=== PATIENT | female | born 1970 | race Caucasian/White ===

== ENCOUNTER 2025-02-06 08:11 | Emergency (ER) | payer SELFPAY ==
[2025-02-06 08:25] VITALS: BP 164/98; PULSE 79; RESP 20; TEMP 36.6; O2SAT 99; BMI 21.9
--- NOTE | 2025-02-06 08:29 | XR_ITS ---
FINAL REPORT CLINICAL HISTORY: dry cough 4 years, worse 1w COMPARISON: None FINDINGS: PA and lateral views of the chest are obtained. There is no prior exam for comparison. The cardiac and mediastinal silhouettes are within normal limits. The lungs are clear. There is no pleural effusion, pneumothorax, or acute osseous abnormality. IMPRESSION: No radiographic evidence of acute cardiac or pulmonary disease. Reviewed, Interpreted and Dictated by Jocy Acuna MD Transcribed by Vanessa Arthur Authenticated and [facility]
[2025-02-06 08:30] VITALS: BP 163/129; PULSE 89; O2SAT 98
[2025-02-06 08:32] VITALS: BP 186/114; PULSE 88; O2SAT 98
[2025-02-06] MEDS: predniSONE 20MG TAB 40 MG PO (08:34)
--- NOTE | 2025-02-06 08:44 | ECG_ITS ---
APPROVED REPORT Exam: Resting ECG HR:79 bpm ECG Measurements Heart Rate 79 AXES PA 161 P 59 QRSd 137 QRS 98 QT 393 T 47 QTc 427 Conclusion Sinus rhythm Right axis deviation Conduction delay with widened QRS Electronically signed by : CHUCK SCHAEFER, 02/08/2025 19:38:18
--- NOTE | 2025-02-06 09:01 | HMH.EDGENADL ---
Discharge Plan Disposition Patient Disposition: Home, Self-Care Prescriptions Prescriptions: New prednisone 20 mg tablet 40 mg PO DAILY 5 Days Qty: 10 0RF Referrals Follow up/Referrals: Provider,Referral, MD [Primary Care Provider] - See instructions Activity Restrictions/Add. Instructions Additional Instructions/Restrictions: Call your family doctor to establish care for this visit to the emergency department and schedule follow-up within 48 hours to ensure improvement. Prednisone each morning after waking up for the next 5 days. Clinical Impressions Clinical Impression: Bronchitis Print Language Print Language: Northern Irish Discharge ED Provider: Jose Romero General Adult HPI General Chief complaint: Upper Respiratory Infection Stated complaint: Dry cough, fever, facial edema, SOA Time Seen by Provider: 02/06/25 08:16 Mode of Arrival: Ambulatory Source of Information: Patient and Spouse Description of Symptoms (Recalled from ER Triage Doc. by RN): pt is here for a cough that got worse since sunday but has been going on since 2020 after covid shot, pt desscribes what sounds like asthma but has no pulmonary hx and hasnt seen anyone for it. History of Present Illness HPI narrative: Please note that above description of symptoms, in this electronic medical record under categorization of recalled from ER triage doctor by RN are reflective of an initial nursing assessment, however, is not reflective of my full history and physical exam that was personally taken and clarified. Consequentially, this preceding description of symptoms, which may include the patient's categorized chief complaint in the EMR, do not reflect my personal clinical impression, and the ultimate description of history of present illness and patient stated complaints should be deferred to this section of the note. Unless stated otherwise or congruent with this section of the note, additional signs, symptoms, or incongruence should be interpreted as inaccurate with my clinical impression. Related Data Previous Rx's ?Medication ?Instructions ?Recorded prednisone 20 mg tablet 40 mg (2 x 20 mg) PO DAILY 5 days 02/06/25 #10 tabs Allergies Allergy/AdvReac Type Severity Reaction Status Date / Time sumatriptan (From Imitrex) Allergy Hives Verified 02/06/25 08:31 [facility] Disclaimer: The information contained in this section may have been updated after the patient was seen, as this information can be updated by other users. Social History Smoking Status: Never smoker alcohol intake: never current occupational status: employed Travel in the last 8 weeks?: None ROS Obtained: Yes All systems reviewed & no additional complaints except as documented Physical Exam General General appearance: alert Head Head exam: atraumatic and normocephalic Eye Eye exam: Present normal appearance, PERRL and EOMI Neck Neck exam: Present normal inspection, full ROM and trachea midline Respiratory Respiratory exam: Absent respiratory distress, wheezes, stridor, accessory muscle use or prolonged expiratory phase Cardiovascular Cardiovascular exam: Present other (Pulses equal symmetric in upper and lower extremities) Abdominal Exam Abdominal exam: Present soft; Absent distention, tenderness or pulsatile mass Extremities Exam Extremities exam: Absent edema Neurological Exam Neurological exam: Present alert, oriented X3 and CN II-XII intact; Absent motor sensory deficit Skin Skin exam: Present warm and dry; Absent diaphoresis or erythema Medical Decision Making Medical Records Medical records reviewed: Yes I reviewed the patient's medical records. Screening: Per USPSTF and CDC recommendations, given the prevalence of disease in our region, it is our hospital?s policy to screen for HIV and viral Hepatitis for all patients aged 18 and over and those with ongoing risk factors. Inocencio Inquiry Pt receiving controlled substance: No Inocencio was queried for this patient: No Vital Signs: 02/06/25 08:25 02/06/25 08:30 02/06/25 08:32 Temperature 97.8 F Temperature Source Oral Pulse Rate 89 88 Pulse Rate [Left Radial] 79 Respiratory Rate 20 Blood Pressure 163/129 H 186/114 H Blood Pressure [Right Arm] 164/98 H Blood Pressure Mean [Right Arm] 120 02 Sat by Pulse Oximetry 99 98 98 Oxygen Delivery Method Room Air Room Air Room Air Orders (Tests/Meds): ED MEDICATIONS Discontinued Medications Generic Name Dose Route Start Last Admin Trade Name Freq PRN Reason Stop Dose Admin Prednisone 40 mg 02/06/25 08:29 02/06/25 08:34 Prednisone 20mg Tab PO 02/06/25 08:30 40 mg ONCE ONE Administration ORDERS Category Date Time Status CXR 2 view (NOT portable) [XR chest 2V] Stat Exams 02/06/25 08:29 Taken Medical Decision Narrative: 54-year-old female presenting with dry cough. States that this started in 2020. Not getting any better. States that it may have gotten worse in terms of frequency starting on Sunday 4 days prior to this. Nonproductive. No fevers or chills, chest pain, nausea, vomiting, lower extremity swelling, PND, orthopnea, neurologic deficits, or any other concerns. Came in for further evaluation. States that she was using her inhaler, seem to work a little. History obtained with patient. On arrival, very clinically well. Speaking full senses, no wheezes on lung exam, bilateral clear lungs. Nontachycardic, neurologically intact. Differential includes bronchitis, allergic reactive airway disease, less likely be pneumothorax, PE, ACS, CHF, among others. Patient was given steroid. Chest x-ray was obtained. On independent interpretation, this was negative for any acute intrathoracic pathology. She does have bronchial inflammation consistent with likely viral syndrome, chronic bronchitis, etc. Given patient presentation, workup, history, this most likely represents bronchitis. Because patient at baseline without signs or symptoms of clinical decompensation, deemed appropriate for discharge. Results were relayed to patient who voiced understanding and were agreeable to outpatient management and follow up. I discussed my clinical impression with patient and answered all questions. At this time, the evidence for any other entities in the differential is insufficient to warrant any further testing or ED observation. This was explained as well. Advisory was given that persistent or worsening symptoms require further evaluation. I confirmed the understanding of this discussion. [employer] disclaimer Much of this encounter note is an electronic supervisor porcelain department spoken language to printed text. Electronic supervisor porcelain department of the spoken language may permit errors. Although I have reviewed the note, some errors may still exist. Critical Care Critical Care Time Critical Care Time: No
--- NOTE | 2025-02-06 09:52 | PC.NURSE ---
upon discharge patient was very rude with ER MD, pt kept trying to come up with issues and problems as if she didnt want to leave and when ER MD stated there is nothing to keep you here for pt got mad and said she had been told wrong information that this was a great ER, pt signed the dc form and stormed out of ER.
[2025-02-06 09:56] VITALS: BP 151/100; PULSE 84; RESP 20; TEMP 36.8; O2SAT 97
== END 2025-02-06 09:58 | disposition home or self-care (01) ==
LOC: ER 09:24
PROVIDERS: Emergency Provider Emergency Medicine
DX: J20.9 Acute bronchitis, unspecified (principal); R06.02 Shortness of breath
CPT/HCPCS: 71046; 93005; 99284

== ENCOUNTER 2025-02-06 10:07 | Emergency (ER) | payer SELFPAY ==
--- NOTE | 2025-02-06 10:05 | ECG_ITS ---
APPROVED REPORT Exam: Resting ECG HR:76 bpm ECG Measurements Heart Rate 76 AXES MD 157 P 64 QRSd 133 QRS 102 QT 385 T 53 QTc 416 Conclusion Sinus rhythm Right axis deviation Electronically signed by : CHUCK SCHAEFER, 02/08/2025 19:38:01
[2025-02-06 10:26] VITALS: BP 176/115; PULSE 87; RESP 20; TEMP 37; O2SAT 100; BMI 22.8
--- NOTE | 2025-02-06 10:59 | ED_ITS ---
Discharge Plan Disposition Patient Disposition: Home, Self-Care Prescriptions Prescriptions: No Action prednisone 20 mg tablet 40 mg PO DAILY 5 Days Qty: 10 0RF Referrals Follow up/Referrals: August Briceno MD [Staff Physician] - See instructions Provider,MD Missael [Primary Care Provider] - See instructions Charissa Gordon MD [Physician] - See instructions Activity Restrictions/Add. Instructions Additional Instructions/Restrictions: Follow-up with your family doctor for this visit to the emergency department. You can also call cardiology and pulmonology to set up appointments for your heart and lungs. Take your blood pressure 2-3 times daily. Follow-up with your family doctor regarding this visit to the emergency department if your blood pressure continues to be elevated in order to further address need for blood pressure medications, if needed. Clinical Impressions Clinical Impression: Cough Print Language Print Language: Upper Sorbian Discharge ED Provider: Jose Romero General Adult HPI General Chief complaint: Recheck/Abnormal Lab/Rx Stated complaint: SOA Time Seen by Provider: 02/06/25 10:11 Mode of Arrival: Ambulatory Source of Information: Patient Description of Symptoms (Recalled from ER Triage Doc. by RN): Patient presents back to ED to be seen with her dry cough, and her chest feels tight. Patient states she does not feel good enough to be d/c. History of Present Illness HPI narrative: Please note that above description of symptoms, in this electronic medical record under categorization of recalled from ER triage doctor by RN are reflective of an initial nursing assessment, however, is not reflective of my full history and physical exam that was personally taken and clarified. Consequentially, this preceding description of symptoms, which may include the patient's categorized chief complaint in the EMR, do not reflect my personal clinical impression, and the ultimate description of history of present illness and patient stated complaints should be deferred to this section of the note. Unless stated otherwise or congruent with this section of the note, additional signs, symptoms, or incongruence should be interpreted as inaccurate with my clinical impression. Related Data Previous Rx's ?Medication ?Instructions ?Recorded prednisone 20 mg tablet 40 mg (2 x 20 mg) PO DAILY 5 days 02/06/25 #10 tabs Allergies Allergy/AdvReac Type Severity Reaction Status Date / Time sumatriptan (From Imitrex) Allergy Hives Verified 02/06/25 08:31 [facility] Disclaimer: The information contained in this section may have been updated after the patient was seen, as this information can be updated by other users. Social History (Updated 02/06/25 @ 09:07 by Jose Romero MD) Smoking Status: Never smoker alcohol intake: never current occupational status: employed Travel in the last 8 weeks?: None Have you lived/traveled outside [place] in past 30 days?: No Contact w/someone who lives/traveled outside US past 30 days?: No Exposure to someone with infectious disease in past 14 days?: No Do you have a fever (greater than 100.4 F or 38 C)?: No Have you tested positive for COVID-19?: No Exposed to someone with COVID-19 in past 14 days?: No Do you have a sore throat?: No Do you have a cough?: No Do you have any weakness?: No Do you have any diarrhea?: No Are you experiencing any unusual bleeding?: No Do you have any muscle aches/pain?: No Do you have any abdominal pain?: No Are you experiencing loss of taste or smell?: No ROS Obtained: Yes All systems reviewed & no additional complaints except as documented Physical Exam General General appearance: alert and anxious Comment: Agitated Head Head exam: atraumatic and normocephalic Eye Eye exam: Present normal appearance, PERRL and EOMI Neck Neck exam: Present normal inspection, full ROM and trachea midline Respiratory Respiratory exam: Present normal lung sounds bilaterally; Absent respiratory distress, wheezes, stridor, accessory muscle use or prolonged expiratory phase Cardiovascular Cardiovascular exam: Present regular rate, normal rhythm and other (Pulses equal symmetric in upper and lower extremities) Abdominal Exam Abdominal exam: Absent distention Extremities Exam Extremities exam: Absent edema Neurological Exam Neurological exam: Present alert, oriented X3 and CN II-XII intact; Absent motor sensory deficit Skin Skin exam: Present warm and dry; Absent diaphoresis or erythema Medical Decision Making Medical Records Medical records reviewed: Yes I reviewed the patient's medical records. Screening: Per USPSTF and CDC recommendations, given the prevalence of disease in our region, it is our hospital?s policy to screen for HIV and viral Hepatitis for all patients aged 18 and over and those with ongoing risk factors. Inocenico Inquiry Pt receiving controlled substance: No Niocencio was queried for this patient: No Vital Signs: 02/06/25 10:26 02/06/25 12:04 02/06/25 12:07 Temperature 98.6 F 98.7 F Temperature Source Oral Oral Pulse Rate 82 Pulse Rate [Right Brachial] 87 82 Respiratory Rate 20 20 20 Blood Pressure 159/98 H Blood Pressure [Right Arm] 176/115 H 159/98 H Blood Pressure Mean [Right Arm] 135 118 Blood Pressure Source Automatic Cuff Blood Pressure Source [Right Arm] Automatic Cuff Automatic Cuff Blood Pressure Position Sitting Blood Pressure Position [Right Arm] Supine Sitting 02 Sat by Pulse Oximetry 100 100 Oxygen Delivery Method Room Air Room Air Room Air Lab Data Lab Results 02/06/25 11:17: WBC 6.2, RBC 4.68, Hgb 13.8, Hct 41.1, MCV 87.8, MCH 29.5, MCHC 33.6, RDW 12.7, Plt Count 264, MPV 10.9 H, Neut % (Auto) 74.2, Lymph % (Auto) 19.8, Bennett % (Auto) 3.9, Eos % (Auto) 0.8, Baso % (Auto) 1.0, Neut # (Auto) 4.6, Lymph # (Auto) 1.2, Bennett # (Auto) 0.2, Eos # (Auto) 0.1, Baso # (Auto) 0.1, Sodium 139, Potassium 4.5, Chloride 110 H, Carbon Dioxide 25, Anion Gap 8.5, BUN 11, Creatinine 0.60, Estimated Creat Clear 97, Estimated GFR 105, Est GFR ( Amer) 127, Glucose 142 H, Calcium 9.5, Magnesium 2.0, Total Bilirubin 0.6, AST 36, ALT 35, Alkaline Phosphatase 97, Troponin I 0.02, NT-Pro-B Natriuret Pep 26.7, Total Protein 7.5, Albumin 4.7, Globulin 2.8, Albumin/Globulin Ratio 1.7 02/06/25 11:17 02/06/25 11:17 Orders (Tests/Meds): ORDERS Category Date Time Status CBC w/Auto Diff [Complete Blood Count Auto Diff] Stat Lab 02/06/25 11:17 Completed CMP [Comprehensive Metabolic Panel] Stat Lab 02/06/25 11:17 Completed Magnesium Stat Lab 02/06/25 11:17 Completed NT Pro Brain Natriuretic Pep. Stat Lab 02/06/25 11:17 Completed Trop I [Troponin I] Stat Lab 02/06/25 11:17 Completed Troponin I Q3H Lab 02/06/25 14:30 Ordered Troponin I Q3H Lab 02/06/25 17:30 Ordered Medical Decision Narrative: This is a 54-year-old female presenting with multiple complaints. Patient initially being agitated, but pleasant. She was discharged just a few minutes prior to this visit to the emergency department because she came in for cough this been going on for 4 years that got worse just a couple days prior to this. Chest x-ray without fluid, demonstrated bronchial inflammation. Patient was given steroids. Prior to discharge, patient states that she was worried about her blood pressure running higher than it usually did, but was not currently having symptoms. It was explained that when patients come into the emergency department, they are worried about something, and pain, anxious, etc., blood pressure is generally universally run higher. 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 Patient was discharged appropriately and in hemodynamically stable condition. Patient returned immediately to the emergency department stating that she had facial swelling, bilateral hand and feet swelling, chest pains, amongst a host of other complaints. EKG was obtained. On independent interpretation, still sinus rhythm with right axis deviation similar to her previous. Ventricular rate 76, TX 157, QRS 133, QTc 416. No acute ischemic changes on serial exam from the previous one that happened a little less than 2 hours prior. Patient states that she was unsafely discharged, and is agitated, irritated. I tried to talk to patient reasonably, have conversation, but she continually became more agitated. I asked her what she needed for me, she stated that she would like to know why her hands or feet are swelling. On physical exam, they are grossly not swollen and not edematous. She has no evidence of angioedema, speaking full sentences, and neither her hands, feet, upper or lower extremities in general have any signs of edema. Her pulses are equal and symmetric in upper and lower extremities. 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 Because of this, I tried to level with her and state that we can certainly get labs to rule out any kind of metabolic, cardiac or other abnormality that may potentially be contributing. Patient begins fighting this stating you are just painting me like someone who is coming in here making demands. It was explained that I was not paining her as anything in particular, she, herself, was the one making demands and I was asking her what she needed from me. This made patient incredibly angry and she started raising her voice. I raised my voice as well and told patient that she would not talk to me this way and we were going to have a civil interaction. I asked her once again, what she wanted for me and what she needed from this visit. She yelled I need my to be here with me! I asked patient why she needs her to be with her to explain what symptoms she, herself, is having and she refused to ask any other questions or answer any questions. She stormed out of the room, went to the charge desk and requested her to be brought into the emergency department. unable to be found, so he was contacted. Patient's brought back. Patient experience was contacted as well as house and security given the level of agitation and patient. We do not accept any form of aggression in the emergency department including verbal. Patient able to be calmed down, but states that she needs to be seen in a different emergency department, does not trust us, etc. I was explained that we are not asking her to trust us, she came here in order to have a workup done and the previous medical screening exam was adequate for that visit. Dissatisfied, so labs were drawn. On independent interpretation, nonactionable CBC with hemoglobin 13.8. Patient's chemistry nonactionable with normal kidney function, normal electrolytes other than mildly elevated chloride, not clinically relevant. Patient's troponin negative, BNP negative. On reevaluation, patient and in room. Results were relayed with her. We also had conversation regarding interaction as discussed above and the conversation ended on relatively good terms. Given patient presentation, workup, history, this most likely represents acute on chronic bronchitis versus reactive airway disease. Because patient at baseline without signs or symptoms of clinical decompensation, deemed appropriate for discharge. Results were relayed to patient who voiced understanding and were agreeable to outpatient management and follow up. I discussed my clinical impression with patient and answered all questions. At this time, the evidence for any other entities in the differential is insufficient to warrant any further testing or ED observation. This was explained as well. Advisory was given that persistent or worsening symptoms require further evaluation. I confirmed the understanding of this discussion. Bike Technician disclaimer Much of this encounter note is an electronic parachute repairer spoken language to printed text. Electronic parachute repairer of the spoken language may permit errors. Although I have reviewed the note, some errors may still exist. Critical Care Critical Care Time Critical Care Time: No
--- NOTE | 2025-02-06 11:02 | PC.NURSE ---
Patient came to the nurses station screaming at staff to get her . Attempted to get her but could not find him. Patient began yelling asking for her records and that she was going to go to another hospital. Refused to leave nurses station. supervisor assembling, Zahra Aguayo and security notified.
[2025-02-06 11:30] LABS: Basophils # 0.1 K/mm3 (0-0.2); Eosinophils # 0.1 Kmm3 (0.0-0.4); Eosinophils % 0.8 % (0.1-12.0); Hematocrit 41.1 % (37.0-47.0); Hemoglobin 13.8 g/dL (12.2-16.2); Immature Granulocytes # 0.02 10^3uL; Immature Granulocytes % 0.3 %; Lymphocytes # 1.2 K/mm3 (0.7-4.5); Lymphocytes % 19.8 % (10-50); Mean Corpuscular HGB Conc 33.6 g/dL (31.8-35.4); Mean Corpuscular Hemoglobin 29.5 pg (27.0-31.2); Mean Corpuscular Volume 87.8 fl (81-99); Mean Platelet Volume 10.9 fl (7.4-10.4); Monocytes # 0.2 K/mm3 (0.1-1.0); Monocytes % 3.9 % (1.7-9.3); Neutrophils # 4.6 K/mm3 (1.8-7.8); Neutrophils % 74.2 % (37.0-80.0); Nucleated Red Blood Cells # 0 10^3/uL; Nucleated Red Blood Cells % 0 %; Platelet Count 264 K/mm3 (142-424); Red Blood Count 4.68 M/mm3 (4.20-5.40); Red Cell Distribution Width 12.7 % (11.5-17.5); Red Cell Distribution Width-SD 41.1 fL; White Blood Count 6.2 K/mm3 (4.8-10.8)
[2025-02-06 11:34] LABS: Albumin Level 4.7 g/dl (3.5-5.0); Chloride 110 mmol/L (98-107)
[2025-02-06 11:35] LABS: Potassium 4.5 mmoL/L (3.5-5.1); Sodium 139 mmol/L (136-145)
[2025-02-06 11:37] LABS: Alanine Aminotransferase 35 U/L (12-78); Alkaline Phosphatase 97 U/L (38-126); Anion Gap 8.5 mEq/L (5-15); Aspartate Amino Transferase 36 U/L (14-36); Bilirubin,Total 0.6 mg/dl (0.2-1.3); Blood Urea Nitrogen 11 mg/dl (7-17); Carbon Dioxide 25 mmol/L (22.0-30.0); Creatinine Clearance Estimated 97 mL/min (50-200); Estimated Glomerular Filt Rate 105 ml/min (>60); GFR (African American) 127 ML/MIN (>60)
[2025-02-06 11:38] LABS: Albumin/Globulin Ratio 1.7 (1.1-1.8); Calcium 9.5 mg/dl (8.4-10.2); Globulin 2.8 g/dL (1.3-3.2); Glucose 142 mg/dl (74-100); Total Protein,Serum 7.5 g/dl (6.3-8.2)
--- NOTE | 2025-02-06 11:40 | PC.NURSE ---
Patient came to the nurses station yelling I want my EKG now and I am leaving to go to a different ER. Patient was raising her voice and demanding her be able to come back to see her. Zahra Aguayo and RADHA Willams, RN called at that time. Patient was escorted back to her chair in room 12. This RN called her to let him know the patient wanted him to come inside to see her. Zahra aguayo and RADHA came to bedside at this time. Patient states she does not feel like she is safe to d/c. had offered to do labs and patient declined originally. Now patient is agreeing to have labs drawn. RADHA draws the labs. updated on POC. Patient is resting in chair, at side. updated on POC. patient voices no needs at this time.
[2025-02-06 11:47] LABS: NT Pro Brain Natriuretic Pep. 26.7 pg/mL (0-125)
[2025-02-06 11:49] LABS: Troponin I 0.02 ng/ml (0.00-0.034)
[2025-02-06 12:04] VITALS: BP 159/98; PULSE 82; RESP 20; TEMP 37.1; O2SAT 100
[2025-02-06 12:07] VITALS: BP 159/98; PULSE 82; RESP 20; O2SAT 100
== END 2025-02-06 12:25 | disposition home or self-care (01) ==
PROVIDERS: Emergency Provider Emergency Medicine
DX: R07.89 Other chest pain (principal); R05.1 Acute cough; R45.1 Restlessness and agitation; R45.5 Hostility
CPT/HCPCS: 80053; 83735; 83880; 84484; 85025; 93005; 99283

== ENCOUNTER 2025-09-09 16:00 | Outpatient (CLI) | payer SELFPAY ==
--- OUTSIDE RECORDS SUMMARY | 2025-09-08 14:30 | XMS_ITS | Encounter Summary ---
Author Organization [facility] Address [address] [place] [address] Care Team Providers Care Home Care Manager Name Role Phone Freddy CLARK MD, Malvin Washburn Unavailable Keira vailable Tono Astudillo MD Unavailable Encounter Details Date Type Department Care Team (Latest Contact Info) Description 09/08/2025 2:30 PM EST Telemedicine [facility] [place] [address] Francine Hawk PA-C [address] [place] [address] Primary hypertension (Primary Dx); Hyperlipidemia, unspecified hyperlipidemia type; Type 2 diabetes mellitus without complication, without long-term current use of insulin (HCC); Left bundle branch block; 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 No answer. Recommend calling to reschedule. 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
[2025-09-09 19:45] LABS: Alanine Aminotransferase 32 U/L (12-78); Albumin Level 4.3 g/dl (3.5-5.0); Albumin/Globulin Ratio 1.5 (1.1-1.8); Alkaline Phosphatase 85 U/L (38-126); Anion Gap 8.9 mEq/L (5-15); Aspartate Amino Transferase 33 U/L (14-36); Bilirubin,Total 0.9 mg/dl (0.2-1.3); Blood Urea Nitrogen 12 mg/dl (7-17); Calcium 9.6 mg/dl (8.4-10.2); Carbon Dioxide 30 mmol/L (22.0-30.0); Chloride 104 mmol/L (98-107); Creatinine,Serum 0.80 mg/dl (0.52-1.04); Estimated Glomerular Filt Rate 75 ml/min (>60); GFR (African American) 90 ML/MIN (>60); Globulin 2.8 g/dL (1.3-3.2); Glucose 158 mg/dl (74-100); Lipase 180 U/L (23-300); Potassium 3.9 mmoL/L (3.5-5.1); Sodium 139 mmol/L (136-145); Total Protein,Serum 7.1 g/dl (6.3-8.2)
--- OUTSIDE RECORDS SUMMARY | 2025-09-10 11:55 | XMS_ITS | Encounter Summary ---
Author Organization [facility] [address] Care Team Providers Care Grader Meat Name Role Phone Elsa Cronin MD Primary Care Provider + [phone] Reason for Visit * Auth/Cert/Inpt (Routine) Specialty Diagnoses / Procedures Referred By Contac t Referred To Contact Diagnoses Chest Pain Referral ID Status Reason Start Date Expiration Date Visits Re quested Visits Authorized [id number] 1 1 Encounter Details Date Type Department Care Team (Late st Contact Info) Description 12/03/2024 Hospital Encounter EDG 2A OBSERVATION UNIT [facility] [address] [place] [id number] August Ochoa MD [address] [place] [address] Social History Tobacco Use Types Packs/Day Years Used Date Smoking Tobacco: Never Smokeless Tobacco: Never Alcohol Use Standard Drinks/Week Comments Never 0 (1 standard drink = 0.6 oz pur e alcohol) AUDIT-C Answer Date Recorded Q1: How often do you have a drink containing alc ohol? Never 05/11/2021 Average Number of Drinks Not on file 021 Frequency of Binge Drinking Not on file 04/24 Sexually Active Control Partners Comments Yes Surgical Male Comments No Sex and Gender Information Value Date Recorded Sex Assigned at Not on file Legal Sex Female 5:14 AM EDT Gender Identity Not on file Sexual Orientation Not on file documented as of this encounter Plan of Treatment Not on file documented as of this encounter Visit Diagnoses Not on filedocumented in this encounter Care Teams Grader Meat Relationship Specialty Start Date End Date Elsa Cronin MD [address] [place] [phone] PCP - General Family Medicine 09/09/21 documented as of this encounter
--- OUTSIDE RECORDS SUMMARY | 2025-09-10 11:55 | XMS_ITS | Clinical Summary ---
Author Organization [facility] Address [address] [place] [address] Care Team Providers Care [employer] Advisor Name Role Phone Freddy CLARK MD, Malvin Washburn Unavailable Keira vailable Tono Astudillo MD Unavailable Allergies Active Allergy Reactions Criticality Noted Date Comments Moxifloxacin Other (See Comments) 09/18/2010 Hallucinations Sumatriptan Succinate Anaphylaxis High 09/18/2010 Medications Lisdexamfetami ne (VYVANSE) 40 mg Cap Take 40 mg by mouth Once Daily. Active diphenhydrAMIN E (BENADRYL) 50 mg/mL injection Administer 50 mg intramuscularly As needed. Active ketorolac (TORADOL) 60 mg/2 mL injection Administer 30 mg intramuscularly Every 6 hours. Active ondansetron HCL (ZOFRAN) 4 mg tablet Take 8 mg by mouth Twice a day. Active diltiazem (CARDIZEM) 30 mg tablet Take 1 Tablet by mouth Three times a day. 90 Tablet 06/09/20 25 Active metoprolol (LOPRESSOR) 25 mg tablet Take 1 Tablet by mouth Once Daily. 30 Tablet 3 06/09/20 25 Active ergocalciferol (VITAMIN D2) 50,000 unit CAPSULE Take 1 Capsule by mouth Every week. 12 Capsule 1 06/11/20 25 Active Active Problems Problem Noted Date Diagnosed Date NIDDM (non-insulin dependent diabetes mellitus) 09/19/2010 Migraines 09/19/2010 Chest pain 09/19/2010 Tachycardia 09/19/2010 HTN (hypertension) 09/19/2010 Hyperlipidemia 09/19/2010 Elevated LFT's 09/19/2010 Encounters Date Type Department Care Team Description 09/08/2025 2:30 PM EST Telemedicine [facility] [address] [place] [address] Francine Hawk PA-C Primary hypertension (Primary Dx); Hyperlipidemia, unspecified hyperlipidemia type; Type 2 diabetes mellitus without complication, without long-term current use of insulin (HCC); Left bundle branch block; 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); Other fatigue 06/11/2025 Orders Only [facility] [address] [facility] [address] [place] [phone] Francine Hawk PA-C Low vitamin D level (Primary Dx) from Last 3 Months Social History Tobacco Use Types Packs/Day Years Used Date Smoking Tobacco: Never Smokeless Tobacco: Never Alcohol Use Standard Drinks/Week Comments No 0 (1 standard drink = 0.6 oz pur e alcohol) Comments No Sex and Gender Information Value Date Recorded Sex Assigned at Not on file Legal Sex Female 8:19 PM EST Gender Identity Not on file Sexual Orientation Not on file Last Filed Vital Signs Vital Sign Reading Time Taken Comments Blood Pressure 138/90 06/09/2025 9:28 AM EDT Pulse 87 06/09/2025 9:28 AM EDT Temperature 36.8 C (98.2 F) 02/27/2014 2:15 PM EDT Respiratory Rate 16 06/09/2025 9:28 AM EDT Oxygen Saturation 99% 06/09/2025 9:28 AM EDT Inhaled Oxygen Concentration - - Weight 61.1 kg (134 lb 12.8 oz) 06/09/2025 9:28 AM EDT Height 157.5 cm (5' 2 ) 06/09/2025 9:28 AM EDT Body Mass Index 24.66 06/09/2025 9:28 AM EDT Plan of Treatment Health Maintenance Due Date Last Done Comments ANNUAL DIABETIC URINE MICROALBUMIN 1971 COLOGUARD 1971 COLONOSCOPY 1971 Colorectal Screening Combination 1971 FIT 1971 PAP SMEAR EVERY 3 YR (Cervic al Cancer Screen) 1971 SIGMOIDOSCOPY 1971 ANNUAL DIABETIC EYE EXAM 1981 ANNUAL MAMMOGRAM 2011 Shingles Vaccine (Shingrix) (1 of 2) 2021 ANNUAL WELLNESS EXAM 11/01/2023 10/31/2022 INFLUENZA VACCINE (#1) 2025 2, 07/30/2018, 09/26/2017 DTAP/TDAP/TD VACCINE (2 - Td or Tdap) 06/21/2027 06/21/2017 HEP C SCREENING Completed 10/11/2010 CT Colonography Completed HEP A VACCINE Aged Out No longer elig ible based on patient's age to complete this topic HIB VACCINE Aged Out No longer eligi ble based on patient's age to complete this topic ROTOVIRUS VACCINE Aged Out No longer eligible based on patient's age to complete this topic Procedures Procedure Name Priority Date/Time Associated Diagnosis Comments ACUTE HEPATITIS PANEL Routine 10/11/2010 10:55 AM EST RUQ pain Elevated liver enzymes GERD (gastroesophageal reflux disease) from Last 3 Months or Most Recently Relevant to Health Maintenance Results * Acute Hepatitis Panel (10/11/2010 10:55 AM EST) HBSAG NEGATIVE Negative [facility] HEPATITIS BC AB, IGM NEGATIVE Negative [facility] HEPATITIS C AB NEGATIVE Negative [facility] HEPATITIS A IGM NEGATIVE Negative [facility] 10/11/2010 10:5 5 AM EST 10/11/2010 11:00 AM EST Malvin Hayes III, MD CHEMISTRY ORDERABLES Final Result [facility] [address] [facility] [place] [address] from Last 3 Months or Most Recently Relevant to Health Maintenance Insurance WORKERS COMP - GENERIC Care Teams [employer] Advisor Relationship Specialty Start Date End Date Tono Astudillo MD [address] [place] [address] PCP - Family Medicine Family Medicine 03/10/25 Malvin Hayes III, MD Gastroenterology 10/10/10
--- OUTSIDE RECORDS SUMMARY | 2025-09-10 11:55 | XMS_ITS | Clinical Summary ---
Author Organization [facility] [place] [facility] Address [address] [place] [address] Phone Care Team Providers Care Paper Cone Maker Name Role Phone Elsa Cronin MD Primary Care Provider + [phone] Allergies Active Allergy Reactions Criticality Noted Date Comments Sumatriptan Succinate Anaphylaxis High 10/27/2015 Tongue and throat swell Moxifloxacin Other (See Comments) 09/18/2010 Hallucinations Medications fluticasone (FLONASE) 50 mcg/actuation Nasl Rand[place], SuspensionIndic ations:Acute frontal sinusitis, recurrence not specified 1 [place] by Nasal route daily. 1 Bottle 0 6 Active Additional Information Patient not taking.Reported on 10/31/2022 buPROPion (WELLBUTRIN XL) 300 mg Oral Tablet Sustained Release 24 hr Take by mouth daily. Active PROAIR HFA 90 mcg/actuation Inhl HFA Aerosol Inhaler 1 Active azithromycin (ZITHROMAX) 250 mg Oral Tablet 1 Active benzonatate (TESSALON) 200 mg Oral Capsule 1 Active ketorolac (TORADOL) 60 mg/2 mL IM Solution 1 Active methylPREDNISol one (MEDROL DOSPACK) 4 mg Oral Tablets, Dose Pack 1 Active promethazine-co deine (PHENERGAN WITH CODEINE) 6.25-10 mg/5 mL Oral Syrup 1 Active methylPREDNISol one (MEDROL DOSPACK) 4 mg Oral Tablets, Dose Pack follow package directions 21 Tablet 1 Active Additional Information Patient not taking.Reported on 10/31/2022 Multivitamins-M inerals-Lutein Oral Tablet Take 1 Tablet by mouth daily. Active metoprolol succinate (TOPROL-XL) 25 mg Oral Tablet Sustained Release 24 hr 3 Active busPIRone (BUSPAR) 5 mg Oral Tablet Take 5 mg by mouth. Active ibuprofen (ADVIL;MOTRIN) 600 mg Oral TabletIndicatio ns:Dyspareunia in female Take 1 Tablet by mouth every 6 hours as needed for Pain. 60 Tablet 1 3 Active Active Problems Problem Noted Date Diagnosed Date Numbness in both hands 09/09/2021 Abnormal liver function tests 09/19/2010 Chest pain 09/19/2010 Diabetes mellitus 09/19/2010 HTN (hypertension) 09/19/2010 Hyperlipidemia 09/19/2010 Migraines 09/19/2010 Tachycardia 09/19/2010 Encounters Date Type Department Care Team Description 07/06/2025 Telephone [facility] Arrhythmia [facility]tr Edg [address] [facility] [address] [place] [phone] Mary Troy, Clerical Staff Other from Last 3 Months Immunizations Immunization Administration Dates Next Due Tdap 06/21/2017 Surgical History Surgery Date Site/Laterality Comments HYSTERECTOMY CHOLECYSTECTOMY Medical History Medical History Date Comments Left bundle branch block Attention-deficit hyperactivity disorder Family History Medical History Relation Name Comments Diabetes Brother Diabetes Father Heart Disease Father Heart Attack Mother Other Paternal Aunt Relation Name Status Comments Brother Father Mother Paternal Aunt Social History Tobacco Use Types Packs/Day Years Used Date Smoking Tobacco: Never Smokeless Tobacco: Never Tobacco Cessation:Counseling Given: Not Answered Alcohol Use Standard Drinks/Week Comments Never 0 [...] on file Sexual Orientation Not on file Obstetrics History Para Term AB IAB SAB Ectopic Multiple Livin g Live Births 2 2 2 Date Outcome GA Total Labor Labor/2nd/3rd Weight Sex Type Anes PTL Lizy A1 A5 Name Clin Para Vag-Spo nt Para Vag-Spo nt Last Filed Vital Signs Vital Sign Reading Time Taken Comments Blood Pressure 133/87 05/26/2025 12:34 AM EDT Pulse 76 05/26/2025 12:34 AM EDT Temperature 36.6 C (97.9 F) 05/25/2025 10:46 PM EDT Respiratory Rate 18 05/26/2025 12:34 AM EDT Oxygen Saturation 99% 05/26/2025 12:34 AM EDT Inhaled Oxygen Concentration - - Weight 59 kg (130 lb) 05/25/2025 10:45 PM EDT Height 154.9 cm (5' 1 ) 05/25/2025 10:45 PM EDT Body Mass Index 24.56 05/25/2025 10:45 PM EDT Plan of Treatment Health Maintenance Due Date Last Done Comments Annual Wellness Exam 1974 Lipids 1981 Diabetic Eye Exam 1989 Hemoglobin A1c 1989 Kidney Health: uACR 1989 Hepatitis B Vaccine (1 of 3 - 19+ 3-dose series) 1990 Pneumococcal Vaccine 50+ (1 of 2 - PCV) 1990 HPV/Pap Cotest 2001 Breast Cancer Screening 2011 Cologuard 2016 Colon Cancer Screening 2016 Colonoscopy 2016 FIT 2016 Sigmoidoscopy 2016 Virtual Colonography 2016 Zoster (1 of 2) 2021 COVID-19 Vaccine (1 - season) 2025 Influenza Vaccine (#1) 2025 2, 07/30/2018, 09/26/2017, Additional history exists Cervical Cancer Screening 10/31/2025 Pap Smear 10/31/2025 10/31/2022 Kidney Health: eGFR 02/17/2026 02/17/2025 DTaP/TDaP/Td (2 - Td or Tdap) 06/21/2027 06/21/2017 Meningococcal B Vaccine Aged Out No l onger eligible based on patient's age to complete this topic Procedures Procedure Name Priority Date/Time Associated Diagnosis Comments BASIC METABOLIC PANEL STAT 02/17/2025 9:34 PM EDT NURSERY MANAGER CYTOLOGY REQUEST (PAP ONLY) Routine 10/31/2022 10:13 AM EST Well female exam with routine gynecological exam from Last 3 Months or Most Recently Relevant to Health Maintenance Results * (ABNORMAL) BASIC METABOLIC PANEL (02/17/2025 9:34 PM EDT) Sodium 142 136 - 145 mmol/L 02/17/2025 9:58 PM EDT [facility] Potassium 3.8 3.5 - 5.0 mmol/L 02/17/2025 9:58 PM EDT [facility] Chloride 107 98 - 107 mmol/L 02/17/2025 9:58 PM EDT [facility] Total CO2 24 22 - 29 mmol/L 02/17/2025 9:58 PM EDT [facility] Anion Gap 11 7 - 16 mmol/L 02/17/2025 9:58 PM EDT [facility] Calcium 8.9 8.6 - 10.4 mg/dL 02/17/2025 9:58 PM EDT [facility] Glucose Lvl 149(H) 70 - 99 mg/dL 02/17/2025 9:58 PM EDT [facility] BUN 9 6 - 20 mg/dL 02/17/2025 9:58 PM EDT [facility] Creatinine 0.61 0.51 - 1.30 mg/dL 02/17/2025 9:58 PM EDT [facility] eGFR (CKD-EPIcr 2020) 106 >=60 mL/min/1.7 3 m2 02/17/2025 9:58 PM EDT [facility] Comment:Estimated GFR was ca lculated using the CKD-EPIcr (2020) equation refit without race. The equation is recommended by the National Kidney Foundation - [place] [employer] of Nephrology Task Force. Blood VENOUS BLOOD / Unknown Venipuncture / Unknown 02/17/2025 9:34 PM EDT 02/17/2025 9:39 PM EDT us Edvin Hughes MD CHEMISTRY ORDERABLES Final Res ult [facility] [address] [facility] [place] [address] * NURSERY MANAGER CYTOLOGY REQUEST (PAP ONLY) (10/31/2022 10:13 AM EST) CASE REPORT Gynecologic Cytology Report Case: [id number] Authorizing Provider: Tono Bishop MD Collected: 10/31/2022 1013 Ordering Location: [facility] NPTT Received: 10/31/2022 1013 First Screen: Quentin Arboleda CT Specimen: LIQUID-BASED PAP - VAGINAL CUFF, Vaginal Cuff 11/02/2022 8:43 AM EST [facility] PAP FINAL DIAGNOSIS Negative for intraepithelial lesion or malignancy 11/02/2022 8:[address] [facility] at 0843 EST MICROSCOPIC DESCRIPTION Microscopic examination is performed and the findings corroborate the diagnosis. 11/02/2022 8:43 AM EST [facility] PAP SMEAR ADEQUACY Satisfactory for evaluation 11/02/2022 8:43 AM EST [facility] ENDOCERVICAL T-ZONE Transformation Zone Absent. This is not unusual for a post-hysterectomy woman. 11/02/2022 8:43 AM EST [facility] EMBEDDED IMAGES 8:[address] [facility] PAP DISCLAIMER The Pap Smear is a screening test that aids in the detection of cervical cancer and cancer precursors. Both false positive and false negative results can occur. The test should be used at regular intervals, and positive results should be confirmed before definitive therapy. Processed using the ThinPrep Wet Pan Operator Automated cytology screening device (ECO). 11/02/2022 8:43 AM EST [facility] PAP OTHER FINDINGS Many acute inflammatory cells noted. 11/02/2022 8:43 AM EST [facility] Thin Prep VAGINAL CUFF / Unknown 10/31/2022 10:13 AM EST 10/31/2022 10:13 AM EST us Tono Bishop MD CYTOLOGY ORDERABLES Final Re sult [facility] [address] [place] [id number] from Last 3 Months or Most Recently Relevant to Health Maintenance Insurance [employer] WORK[employer] COMP on file [employer] Care Teams Paper Cone Maker Relationship Specialty Start Date End Date Elsa Cronin MD [address] [place] [phone] PCP - General Family Medicine 09/09/21
--- OUTSIDE RECORDS SUMMARY | 2025-09-10 11:56 | XMS_ITS | Encounter Summary ---
Author Organization [facility] Address [address] [facility] [place] [address] Care Team Providers Care Assignment Clerk Name Role Phone Santy Sanchez MD Primary Care Provider Unava ilable Freddy CLARK MD, Malvin Washburn Unavailable Keira vailable Doctor, Lien Primary Care Provider Unavailabl e Tono Astudillo MD Unavailable Encounter Details Date Type Department Care Team (Late st Contact Info) Description 12/18/2006 Historical Encounter [facility] Maria Del Carmen Holguin, SHOT BAGGER [address] [place] [address] Social History Tobacco Use Types Packs/Day Years Used Date Smoking Tobacco: Never Assessed Comments Unknown Sex and Gender Information Value Date Recorded Sex Assigned at Not on file Legal Sex Female 8:19 PM EST Gender Identity Not on file Sexual Orientation Not on file documented as of this encounter Plan of Treatment Not on file documented as of this encounter Visit Diagnoses Not on filedocumented in this encounter Care Teams Assignment Clerk Relationship Specialty Start Date End Date Santy Sanchez MD PCP - General Internal Medicine 09/18/10 02/26/14 Doctor, Lien selkirk [place] PCP - General Family Medicine 02/27/14 10/26/17 Tono Astudillo MD [address] [place] [address] PCP - Family Medicine Family Medicine 03/10/25 Malvin Hayes III, MD Gastroenterology 10/10/10 documented as of this encounter
--- OUTSIDE RECORDS SUMMARY | 2025-09-10 11:56 | XMS_ITS | Encounter Summary ---
Author Organization [facility] Address [address] [place] [address] Care Team Providers Care American Studies Professor Name Role Phone Santy Sanchez MD Primary Care Provider Unava ilable Freddy CLARK MD, Malvin Washburn Unavailable Keira vailable Doctor, Lien Primary Care Provider Unavailabl e Tono Astudillo MD Unavailable Encounter Details Date Type Department Care Team (Late st Contact Info) Description 11/02/2007 Historical Encounter Global Inés Melendez, ALENA [address] [facility] [place] [address] Social History Tobacco Use Types Packs/Day Years [...] on filedocumented in this encounter Care Teams American Studies Professor Relationship Specialty Start Date End Date Santy Sanchez MD PCP - General Internal Medicine 09/18/10 02/26/14 Doctor, [facility] [place] PCP - General Family Medicine 02/27/14 10/26/17 Tono Astudillo MD [address] [place] [address] PCP - Family Medicine Family Medicine 03/10/25 Malvin Hayes III, MD Gastroenterology 10/10/10 documented as of this encounter
--- OUTSIDE RECORDS SUMMARY | 2025-09-10 11:56 | XMS_ITS | Encounter Summary ---
Author Organization [facility] Address [address] [place] [address] Care Team Providers Care Motor Home Electrical Foreman Name Role Phone Santy Sanchez MD Primary Care Provider Unava ilable Freddy CLARK MD, Malvin Washburn Unavailable Keira vailable Doctor, Lien Primary Care Provider UnavailTono Randall MD Unavailable Encounter Details Date Type Department Care Team (Late st Contact Info) Description 04/17/2006 Historical Encounter Global Ramiro Torres MD [address] [place] [address] Social History Tobacco Use Types Packs/Day Years [...] on filedocumented in this encounter Care Teams Motor Home Electrical Foreman Relationship Specialty Start Date End Date Santy Sanchez MD PCP - General Internal Medicine 09/18/10 02/26/14 Lien [place] PCP - General Family Medicine 02/27/14 10/26/17 Tono Astudillo MD [address] [place] [address] PCP - Family Medicine Family Medicine 03/10/25 Malvin Hayes III, MD Gastroenterology 10/10/10 documented as of this encounter
--- OUTSIDE RECORDS SUMMARY | 2025-09-10 11:56 | XMS_ITS | Data Portability ---
Author Organization [facility] Address [address] [place] [address] Assessment No assessment recorded. Plan of Treatment Reminders Order Date Submit Date Provider Last Modified By Organization Details Last Modified Time Details Appointments None recorded. Lab HbA1c (hemoglobin A1c), blood 2022 023 [facility], [address] [place], [address], 3 10:33:19 fecal occult blood, immunoassay , stool 2022 023 kori [facility], [address], [address], [place], [address], 3 10:35:13 noninvasive colorectal cancer DNA + occult blood screening, QL, stool 2022 023 kori [facility], [address], [address], [place], [address], 3 10:07:45 Referral gastroenter ologist referral 2022 023 kori Faulkner MD, [address] [place] [address] , [address], [place], [address], 3 10:34:53 Procedures None recorded. Surgeries None recorded. Imaging None recorded. Medication Orders Adderall 10 mg tablet 2022 023 [facility], [address] [place], [address], 3 13:41:52 bupropion HCl XL 300 mg 24 hr tablet, extended release 2022 023 [facility], [address] [place], [address], 3 13:41:48 ibuprofen 800 mg tablet 2022 023 [facility], [address] [place] [address], [address], 3 14:23:48 Adderall 10 mg tablet [address], [address], 3 10:33:22 buspirone 5 mg tablet 2022 023 [facility], [address] [place] [address], [address], 3 14:26:15 Adderall 10 mg tablet 2022 023 [facility], [address] [place] [address], [address], 3 14:33:53 Patient TargetsNo targets recorded. Patient InstructionsNo instructions recorded. 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 Screening for malignant neoplasm of colon Referring Physician: Karl Franks, Family Medicine, Encounter Date: 04/24/2023 Results Created Date Observation Date Name Description Value Unit Range Abnormal Flag Note LastModifiedBy Organization Detail LastModifiedTime 04/23/20 24 04/23/2024 COLOG UARD cologuard result Cancel led - Order d not applic able Not Available [facility] [address], [place], [address], 04/23/2024 12:03:29 03/26/20 23 03/26/2023 drug scree n, urine Amphetamines : negati ve Not Available [address] [place], [address], 03/26/2023 10:34:47 03/26/20 23 03/26/2023 drug scree n, urine Cannabinoids : negati ve Not Available [address] [place], [address], 03/26/2023 10:34:47 03/26/20 23 03/26/2023 drug scree n, urine Cocaine: negati ve Not Available [address] [place], [address], 03/26/2023 10:34:47 03/26/20 23 03/26/2023 drug scree n, urine Opiates: negati ve Not Available [address] [place], [address], 03/26/2023 10:34:47 03/26/20 23 03/26/2023 drug scree n, urine Phenocyclidi ne: negati ve Not Available [address] [place], [address], 03/26/2023 10:34:47 03/26/20 23 03/26/2023 drug scree n, urine Barbiturates : negati ve Not Available [address] [place], [address], 03/26/2023 10:34:47 03/26/20 23 03/26/2023 drug scree n, urine Benzodiazepi portia: negati ve Not Available [address] [place], [address], 03/26/2023 10:34:47 03/26/20 23 03/26/2023 drug scree n, urine Ethanol: negati ve Not Available [address] [place], [address], 03/26/2023 10:34:47 03/26/20 23 03/26/2023 drug scree n, urine Hallucinogen s: negati ve Not Available [address] [place], [address], 03/26/2023 10:34:47 03/26/20 23 03/26/2023 drug scree n, urine Inhalants: negati ve Not Available [address] [place], [address], 03/26/2023 10:34:47 03/26/20 23 03/26/2023 drug scree n, urine Anabolic Steroids: negati ve Not Available [address] [place], [address], 03/26/2023 10:34:47 03/26/20 23 03/26/2023 drug scree n, urine Other: negati ve Not Available [address] [place], [address], 03/26/2023 10:34:47 03/26/20 23 03/26/2023 micro album in/cr eatin ine, mass ratio , urine Microalbumin 10 mg/L Not Available [address] [place], [address], 03/22/2023 09:50:41 03/26/20 23 03/26/2023 micro album in/cr eatin ine, mass ratio , urine Creatinine 100 mg/dL Not Available [facility] [address] [place], [address], 03/22/2023 09:50:41 03/26/20 23 03/26/2023 micro album in/cr eatin ine, mass ratio , urine Ratio < 30 mg/g Not Available [facility] [address] [place], [address], 03/22/2023 09:50:41 06/15/20 23 06/15/2023 HbA1c (hemo globi n A1c), blood HbA1C 6.2 % Not Available [facility] [address] [place], [place] [address] [place], [address], 05/30/2023 13:51:30 Result Notes None recorded. Problems Name Problem SNOMED Code Status Onset Date Resolution Date Notes Provider Name and Address Organization Details Recorded Time Preinfar ction syndrome 4177119 Active Crystal Earlywine null, [place] - [facility] 9 15:15:03 History of cardiac catheter ization 18746675079 100 Active Crystal Earlywine null, [place] - [facility] 9 15:15:03 Suspecte d COVID-19 938754543 Completed 02/08/2021 Removal Reason: Problem added by user [email or web address] from the COVID-19 watch flag Tonia Blue null, - [facility] 1 08:44:35 Hypercho lesterol emia 63139686 Active 2016 Jadyn Florian null, [place] - [facility] 3 10:28:07 Migraine 06111952 Completed 201608/28/2018 Removal Reason: Healed Myla Sharp null, [place] - [facility] 0 16:57:47 Sinusiti s 10900376 Completed 201708/28/2018 Removal Reason: Healed Chelly Hay null, [place] - [facility] 8 16:11:37 Strain of tendon of foot and ankle 697238733 Completed 201708/28/2018 Removal Reason: Old dx Chelly Iraheta null, [place] - [facility] 8 16:11:25 Migraine 82793002 Active 2019 Jadyn Florian null, [place] - [facility] 3 10:28:08 Mixed anxiety and depressi ve disorder 298759070 Active 2019 Jadyn Florian null, [place] - [facility] 3 10:28:07 Diabetes mellitus 14912417 Active 2020 Jadyn Florian null, [place] - [facility] 3 10:28:08 Vitreous detachme nt 67426748 Active 2020 Jadyn Florian null, [place] - [facility] 3 10:28:08 Vitamin D deficien cy 99833027 Active 2020 Jadyn Florian null, [place] - [facility] 3 10:28:07 COVID-19 867872288 Active 2020 Jadyn Florian null, [place] - [facility] 3 10:28:08 Attentio n deficit hyperact ivity disorder 607667190 Active 2022 Karl Franks MD [address] [place] [address], [address] [facility] [place] - [facility] 3 17:44:03 Tachycar derian 7063609 Active 2022 Tonia Blue null, [place] - [facility] 3 16:40:09 Problem Notes None recorded. Procedures Surgical History Date Name Laterality Status Provider Name and Address Organization Details Recorded Time 05/02/20 21 Date of Last Mammogram completed Prabhu Reyna [place] - [facility] 06/02/2022 13:42:32 01/27/20 05 Date of Last Colonoscopy completed Zahra Spangler [place] - [facility] 07/27/2023 14:20:10 Appendectomy completed Myla Guerrero [place] - [facility] 06/17/2020 16:56:38 Cholecystectomy, laparoscopic completed Crystal Fay [place] - [facility] 11/16/2016 16:42:09 Hysterectomy completed Zahra Sapngler [place] - [facility] 07/27/2023 14:22:06 Imaging Results None recorded. Procedure Notes None recorded. Medical Equipment None Reported. Allergies Allergen ID Allergen Name Allergen Category Reaction Reaction Severity Criticality Documentation Date Start Date Code Code System Note Provider Name and Address Organization Details Recorded Time 881931 sumatript an medicatio n Not available Not available Not available 03/26/20232018 18803 RxNorm Jadyn charlton, [place] - [facility] 3 10:28:07 504730 SARS-CoV- 2 (COVID-19 ) vaccine, mRNA-BNT1 62b2 medicatio n respirato ry distress severe high 07/27/2023 73776 30 RxNorm LBBB- -new after vacci ne Zahra [place]ton, [place] - [facility] 3 14:18:20 90246 honey bee venom environme nt Not available Not available Not available 06/30/20162015 23777 7 RxNorm Not Available [facility] 6 08:12:20 19503 Avelox medicatio n Not available Not available Not available 06/30/20162015 97633 6 RxNorm Not Available [facility] 6 08:13:34 37630 Imitrex medicatio n Not available Not available Not available 06/30/20162015 25360 3 RxNorm Not Available [facility] 6 08:13:34 Medications Name Sig Start Date Stop Date Status Note LastModified by Organization Details LastModified Time c-ivermecti n 24mg cap TAKE ONE CAPSULE BY MOUTH EVERY DAY WITH FOOD FOR 7 DAYS 03/26 completed Not Available Not Available Not Available amoxicillin 500 mg capsule TAKE 1 CAPSULE BY MOUTH THREE TIMES DAILY 09/20 completed Not Available Not Available Not Available fluconazole 100 mg tablet 03/26 completed Not Available Not Available Not Available buspirone 5 mg tablet Take 1 tablet twice a day by oral route as needed for 90 days. 2022 active Not Available Not Available Not Avai lable metformin 500 mg tablet TAKE ONE (1) TABLET TWICE A DAY BY ORAL ROUTE. 03/26 completed Not Available Not Available Not Available Augmentin 875 mg-125 mg tablet Take 1 tablet every 12 hours by oral route for 10 days. 07/29 completed Not Available Not Available Not Available promethazin e-DM 6.25 mg-15 mg/5 mL oral syrup TAKE 5 ML BY MOUTH NIGHTLY NEEDED FOR COUGH 03/26 completed Not Available Not Available Not Available dihydroergo tamine 0.5 mg/pump act. (4 mg/mL) nasal spray USE ONE SPRAY INTO EACH NOSTRIL EVERY 15 MINUTES FOR 2 DOSES (TOTAL OF 4 SPRAYS) 06/17 completed Not Available Not Available Not Available clindamycin HCl 300 mg capsule 03/26 completed Not Available Not Available Not Available albuterol sulfate 2.5 mg/3 mL (0.083 %) solution for nebulizatio n USE 1 VIAL IN NEBULIZER 4 TIMES DAILY NEEDED FOR 30 DAYS 03/26 completed Not Available Not Available Not Available azithromyci n 250 mg tablet take 2 tablets (500 mg) by oral route once daily for 1 day then 1 tablet (250 mg) by oral route once daily for 4 days 03/26 completed Not Available Not Available Not Available ibuprofen 800 mg tablet TAKE ONE (1) TABLET THREE (3) TIMES A DAY BY ORAL ROUTE. 07/27 completed Not Available Not Available Not Available Lidocaine Viscous 2 % mucosal solution 03/26 completed Not Available Not Available Not Available benzonatate 200 mg capsule 03/26 completed Not Available Not Available Not Available valacyclovi r 1 gram tablet TAKE 1 TABLET BY MOUTH THREE TIMES DAILY FOR 7 DAYS 03/26 completed Not Available Not Available Not Available Aplisol 5 tub. unit/0.1 mL intradermal injection solution Inject 0.1 mL by intraderm al route for 1 day. 10/29 completed Not Available Not Available Not Available prednisone 20 mg tablet Take 1 tablet 3 times a day by oral route. 06/17 completed Not Available Not Available Not Available dextroamphe tamine-amph etamine 10 mg tablet TAKE 1 TABLET BY MOUTH TWICE DAILY BEFORE MEAL(S) active Not Available Not Available No t Available hydroxyzine pamoate 50 mg capsule TAKE 1 CAPSULE BY MOUTH ONCE DAILY 06/17 completed Not Available Not Available Not Available promethazin e 6.25 mg-codeine 10 mg/5 mL syrup TAKE 5 ML BY MOUTH EVERY 6 HOURS NEEDED FOR COUGH 03/26 completed Not Available Not Available Not Available Tamiflu 75 mg capsule Take 1 capsule twice a day by oral route. 03/06 completed Not Available Not Available Not Available tramadol 50 mg tablet Take 1 tablet every 6 hours by oral route as needed for 4 days. 04/03 completed Not Available Not Available Not Available triamcinolo ne acetonide 0.1 % topical cream APPLY A THIN LAYER TO THE AFFECTED AREA(S) BY TOPICAL ROUTE 2 TIMES PER DAY 07/16 completed Not Available Not Available Not Available acyclovir 800 mg tablet TAKE 1 TABLET BY MOUTH FIVE TIMES DAILY FOR 7 DAYS 06/17 completed Not Available Not Available Not Available Depo-Medrol 80 mg/mL suspension for injection Take 80 mg by injection route. 07/16 completed Not Available Not Available Not Available Zofran 8 mg tablet one tablet q 6 hours prn for nausea and vomiting 03/14 completed Not Available Not Available Not Available diphenhydra mine 50 mg/mL injection solution INJECT 1 ML NEEDED FOR HEADACHE 03/26 completed Not Available Not Available Not Available Klonopin 0.5 mg tablet Take 1 tablet twice a day by oral route as needed. 03/14 completed Not Available Not Available Not Available benzonatate 100 mg capsule TAKE 2 CAPSULES BY MOUTH THREE TIMES DAILY NEEDED FOR COUGH 03/26 completed Not Available Not Available Not Available doxycycline monohydrate 100 mg capsule Take 1 capsule twice a day by oral route. 12/28 completed Not Available Not Available Not Available cephalexin 500 mg capsule Take 1 capsule twice a day by oral route for 10 days. 10/19 completed Not Available Not Available Not Available pantoprazol e 40 mg tablet,mukul yed release Take 40 mg by oral route. 07/29 completed Not Available Not Available Not Available erythromyci n 5 mg/gram (0.5 %) eye ointment 03/26 completed Not Available Not Available Not Available Lincocin 300 mg/mL injection solution Take 1 mL by injection route. 10/19 completed Not Available Not Available Not Available Tamiko-D 12 Hour 60 mg-120 mg tablet,exte nded release Take 1 tablet twice a day by oral route. 12/28 completed Not Available Not Available Not Available metoprolol succinate ER 25 mg tablet,exte nded release 24 hr Take 1 tablet every day by oral route for 90 days. 2022 active Not Available Not Available Not Avai lable ergocalcife rol (vitamin D2) 1,250 mcg (50,000 unit) capsule TAKE ONE (1) CAPSULE TWICE A WEEK BY ORAL ROUTE DIRECTED FOR 30 DAYS. 03/26 completed Not Available Not Available Not Available dexamethaso ne sodium phosphate 4 mg/mL injection solution Take 4 mg by injection route. 10/19 completed Not Available Not Available Not Available epinephrine 0.3 mg/0.3 mL injection, auto-inject or inject 0.3 millilite r (0.3 mg) by intramusc ular route once as needed for anaphylax is for 30 days 06/17 completed Not Available Not Available Not Available ibuprofen 600 mg tablet TAKE 1 TABLET BY MOUTH EVERY 8 HOURS NEEDED FOR PAIN 06/17 completed Not Available Not Available Not Available methylpredn isolone 4 mg tablets in a dose pack TAKE BY MOUTH DIRECTED ON INSIDE OF PACKAGE 03/26 completed Not Available Not Available Not Available Prozac 10 mg capsule Take 1 capsule(s ) every day by oral route at bedtime for 30 days. 03/06 completed Not Available Not Available Not Available ketorolac 60 mg/2 mL intramuscul ar solution INJECT CONTENTS OF VIAL (2 ML) INTRAMUSC ULARLY AT ONSET OF HEADACHE DIRECTED 03/26 completed Not Available Not Available Not Available Voltaren 50 mg tablet,mukul yed release Take 1 tablet twice a day by oral route as directed for 15 days. 04/03 completed Not Available Not Available Not Available ondansetron 4 mg disintegrat ing tablet 03/26 completed Not Available Not Available Not Available fluoxetine 20 mg capsule TAKE 1 CAPSULE BY MOUTH ONCE DAILY IN THE EVENING 06/17 completed Not Available Not Available Not Available fluticasone propionate 50 mcg/actuati on nasal spray,suspe nsion [place] 1 spray every day by intranasa l route. 12/12 completed Not Available Not Available Not Available dextroamphe tamine-amph etamine 5 mg tablet TAKE ONE (1) TABLET EVERY DAY BY ORAL ROUTE FOR 30 DAYS. 05/21 completed Not Available Not Available Not Available Mucinex 600 mg tablet, extended release Take 1 tablet every 12 hours by oral route for 15 days. 10/19 completed Not Available Not Available Not Available bupropion HCl XL 300 mg 24 hr tablet, extended release TAKE 1 TABLET BY MOUTH ONCE DAILY active Not Available Not Available No t Available bupropion HCl XL 150 mg 24 hr tablet, extended release TAKE 1 TABLET BY MOUTH ONCE DAILY 09/20 completed Not Available Not Available Not Available Allergy and Congestion Relief 5 mg-120 mg tablet,exte nd release 12 hr 08/28 completed Not Available Not Available Not Available ProAir HFA 90 mcg/actuati on aerosol inhaler Inhale 2 puffs every 4 hours by inhalatio n route. 03/26 completed Not Available Not Available Not Available zinc sulfate 50 mg zinc (220 mg) capsule Take 1 capsule every day by oral route. active Not Available Not Available No t Available ondansetron HCl (PF) 4 mg/2 mL injection solution give 4 mg Zofran IM please 03/14 completed Not Available Not Available Not Available Contrave 8 mg-90 mg tablet,exte nded release Start: 1 tab PO qam x1wk, then 1 tab PO bid x1wk, then 2 tabs PO qam and 1 tab PO qpm x1wk; Max: 4 tabs/day; 12/12 completed Not Available Not Available Not Available Fluarix Quad 1283-2685 (PF) 60 mcg (15 mcg x 4)/0.5 mL IM syringe 08/28 completed Not Available Not Available Not Available Ubrelvy 50 mg tablet one tablet at the onset of migraine no more than one tablet per 24 hour period 03/26 completed Not Available Not Available Not Available [employer] COVID-19 Vaccine (PF) 30 mcg/0.3 mL IM susp (purple) PHARMACY ADMINISTE RED 03/26 completed Not Available Not Available Not Available quercetin 2 capsules daily active Not Available Not Available No t Available Vitals Date Recorded Body height Body mass index (BMI) Body weight Heart rate Oxygen saturation Respiratory rate Pain severity - 0-10 verbal numeric rating [Score] - Reported Systolic And Diastolic Provider Name and Address Organization Details Last Updated DateTime 3 154.94 cm 27.2 kg/m2 86678.3 g 78 /min 98 % 18 /min 0 124/80 mm[Hg] Jadyn Dorantesjimmy [place] - [facility] 3 14:06:45 Date Recorded Body height Body mass index (BMI) Body weight Heart rate Oxygen saturation Respiratory rate Pain severity - 0-10 verbal numeric rating [Score] - Reported Systolic And Diastolic Provider Name and Address Organization Details Last Updated DateTime 3 154.94 cm 26.5 kg/m2 35941.9 3 g 82 /min 98 % 16 /min 0 124/76 mm[Hg] Jadyn Dorantesjimmy [place] - [facility] 3 13:20:39 Date Recorded Body height Body mass index (BMI) Body weight Heart rate Oxygen saturation Respiratory rate Pain severity - 0-10 verbal numeric rating [Score] - Reported Systolic And Diastolic Provider Name and Address Organization Details Last Updated DateTime 3 154.94 cm 26.1 kg/m2 47492.7 5 g 92 /min 98 % 16 /min 0 124/82 mm[Hg] Jadyn Dorantesjimmy [place] - [facility] 3 10:13:50 Date Recorded Body height Body mass index (BMI) Body weight Heart rate Oxygen saturation Respiratory rate Pain severity - 0-10 verbal numeric rating [Score] - Reported Systolic And Diastolic Provider Name and Address Organization Details Last Updated DateTime 3 154.94 cm 26.3 kg/m2 42837.3 4 g 68 /min 98 % 16 /min 0 124/68 mm[Hg] Jadyn Hairstonjacki [employer] - [facility] 3 13:35:21 Date Recorded Body height Body mass index (BMI) Body weight Body temperature Heart rate Oxygen saturation Respiratory rate Pain severity - 0-10 verbal numeric rating [Score] - Reported Systolic And Diastolic Provider Name and Address Organization Details Last Updated DateTime 3 154.94 cm 25.9 kg/m2 79857.1 5 g 97.9 [degF] 94 /min 98 % 16 /min 0 118/94 mm[Hg] Zahra Spangler [place] - [facility] 3 14:16:16 Social History Question Answer Notes LastModified by Organizat ion Details LastModified Time Tobacco Smoking Status Never Smoker Cammie charlton [place] - [facility] 11/16/2016 16:41:22 Able To Swim? Yes [email or web address] Information not available 03/26/2023 Do You Have An Advance Directive? No Information not available 08/28/2018 Do You Wear A Helmet When Biking? No [email or web address] Information not available 03/26/2023 Are You Blind Or Do You Have Difficulty Seeing? No [email or web address] Information not available 03/26/2023 What Is Your Level Of Caffeine Consumption? Occasional Information not available 03/29/2017 How Much Tobacco Do You Chew? None Information not available 03/29/2017 Are You Deaf Or Do You Have Serious Difficulty Hearing? No Information not available 11/16/2016 What Type Of Diet Are You Following? REGULAR Information not available 11/16/2016 Which Illicit Or Recreational Drugs Have You Used? Declined Information not available 03/29/2017 What Is The Highest Grade Or Level Of School You Have Completed Or The Highest Degree You Have Received? [id number] Information not available 03/26/2023 Swimming/diving Yes [email or web address] Informati on not available 03/26/2023 Have There Been Any Changes To Your Family Or Social Situation? No Information no t available 03/26/2023 What Is The Fluoride Status Of Your Home? Unknown Information not available 03/26/2023 Hard Of Hearing Or Deaf In One Or Both Ears? No [email or web address] Information not available 03/26/2023 Legally Blind In One Or Both Eyes? No [email or web address] Information no t available 03/26/2023 Live Alone Or With Others? With Others [email or web address] Information not available 03/26/2023 Do You Have A Medical Power Of Individual Small Group Instructor? No Information not available 03/26/2023 What Was The Date Of Your Most Recent Tobacco Screening? 03/26/2023 Information not available 03/26/2023 How Many Children Do You Have? 2 Information not available 08/28/2018 Do You Use Protection During Sex? No [email or web address] Information not available 03/26/2023 What Is Your Relationship Status? Information not available 11/16/2016 Seat Belts Used Routinely Yes [email or web address] Information not available 03/26/2023 Are You Sexually Active? Yes Information not available 11/16/2016 Smoke Alarm In Home Yes [email or web address] Information not available 03/26/2023 Do You Have Smoke And Carbon Monoxide Detectors In Your Home? Yes Information not available 03/26/2023 Are You Passively Exposed To Smoke? Yes Information no t available 08/28/2018 How Much Tobacco Do You Smoke? No Information not available 07/16/2017 General Stress Level High [email or web address] Information not available 03/26/2023 Do You Use Sunscreen Routinely? Yes Information not available 08/28/2018 Has Tobacco Cessation Counseling Been Provided? No Information not available 03/26/2023 How Many Years Have You Smoked Tobacco? 0 Information not available 07/16/2017 Do You Have Difficulty Walking Or Climbing Stairs? No [email or web address] Information not available 03/26/2023 Sex: Female Functional Status Question Answer Note LastModified by Organizat ion Details LastModified Time Do you use any illicit or recreational drugs? No Information not available 03/26/2023 Do you or have you ever used any other forms of tobacco or nicotine? No Information not available 03/26/2023 What is your level of alcohol consumption? None Information not available 03/29/2017 Are you currently employed? Yes Information not available 11/16/2016 Do you have transportation difficulties? No Information not available 03/26/2023 Are you able to walk independently without assistance or assistive devices? YESWOREST [email or web address] Information not available 03/26/2023 Do you have difficulty doing errands alone? No [email or web address] Information not available 03/26/2023 Are you able to care for yourself independently? 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 No [email or web address] Information not available 03/26/2023 What is your exercise level? None Information not available 08/28/2018 Mental Status Question Answer Note LastModified by Organizat ion Details LastModified Time Do you feel stressed (tense, restless, nervous, or anxious, or unable to sleep at night)? [id number] Information not available 03/26/2023 Do you have difficulty concentrating, remembering or making decisions? No [email or web address] Information no t available 03/26/2023 Family History Relationship Description Onset Age of this Age Resolved Age Notes LastModified by Organization Details LastModified Time Unspecified Relation Diabetes mellitus Not available 2016 16:40:36 Unspecified Relation Hypercholest erolemia Not available 2016 16:40:44 Unspecified Relation Myocardial infarction Not available 04/24 14:06:58 Unspecified Relation Stented artery Not available 2022 14:06:58 Unspecified Relation Family history of stroke Not available 2022 14:06:58 Mother Heart disease 35 Not available 2022 14:06:58 Maternal Grandmother Heart disease 73 Not available 2022 14:06:58 Brother Kidney disease Not available 2022 14:06:58 Paternal Grandfather Cerebrovascu lar accident Not available 09/2022 14:06:58 Paternal Grandfather Arthritis Not available 14:06:58 Medical History Condition Response Depression Y Migraine Headaches Y Hypercholesterolemia Y Liver Disease N Headaches Y Gynecological History Statement/Question Response Last Annual Exam/Provider none Date of Last Mammogram 05/02/2021 Date of Last Colonoscopy 01/26/2005 Date of LMP 01/26/2005 Menses Monthly N Date of Last Pap Smear Current Control Method Hysterectom y LMP Approximate Obstetrics History GPAL:G 2 P 2 0 0 2 Type Value Full Term 2 Living 2 Total 2 Immunizations Vaccine Type Date Status Note Provider Nam e and Address Organization Details Recorded Time Influenza, split virus, quadrivalent, preservative 8 completed Not Available [facility] 10/11/2019 03:54:53 MMR 8 completed Not Available [facility] 10/11/2019 03:55:01 Tdap 7 completed Jadyn Figgins null, [place] - [facility] 05/21/2023 14:08:11 MMR 8 completed Not Available [facility] 07/27/2023 14:04:39 Influenza, split virus, quadrivalent, preservative 8 completed Not Available [facility] 07/27/2023 14:04:39 COVID-19, mRNA, LNP-S, PF, 30 mcg/0.3 mL dose 1 completed Not Available [facility] 07/27/2023 14:04:39 Influenza, split virus, quadrivalent, preservative 8 completed [facility] [place] [facility] 05/21/2023 14:08:11 Influenza, split virus, quadrivalent, PF 2 completed Jadyn Figgins [place], [place] - [facility] 05/21/2023 14:08:11 Influenza, split virus, quadrivalent, PF 8 completed [facility] [place] [facility] 05/21/2023 14:08:11 Past Encounters Encounter ID Performer Location Encounter Start Date Encounter Closed Date Diagnosis/Indication Diagnosis SNOMED-CT Code Diagnosis ICD10 Code Diagnosis IMO Codes Diagnosis Note [id number] Kathy Weathers [facility] [address] [place] [address] 11/16/2016 16:49:24 11/16/2016 17:19:19 Viral gastroenteritis 465834552 A08.4 [id number] Aneta Unger [facility] [address] [place] [address] 12/22/2016 16:13:22 12/22/2016 16:42:25 Anxiety 04832579 F41.9 Depressive disorder 3548 9007 F32.9 [id number] Kathy Weathers [facility] [address] [place] [address] 03/14/2017 11:03:59 03/14/2017 12:02:45 Body mass index 25-29 - overweight 676143109 Z68.26 Pain of sarah int of wrist 592472186 M25.539 Paresthesi a of upper limb 44843952 R20.2 right [id number] Kathy Weathers [address] [place] [address] 03/19/2017 10:03:05 03/19/2017 13:11:44 Contact dermatitis caused by urushiol from [place] [facility] gerry 511964864 L25.5 [id number] Kelsi Madera [address] [place] [address] 03/29/2017 09:42:52 03/29/2017 11:26:46 Contact dermatitis caused by urushiol from [place] [facility] 744791467 L25.5 [id number] Kelsi Madera [address] [place] [address] 07/16/2017 09:30:50 07/16/2017 10:12:52 General examination of patient 171724239 Z00.00 Screening for cardiovascular system disease 449987856 Z13.6 Endocrine/ metabolic screening 102028937 Z13.228 Screening mammography 24 373798 Z12.31 [id number] Kelsi Madera [address] [place] [address] 07/23/2017 15:03:53 07/23/2017 17:27:01 Herpes zoster 0106974 B02.9 [id number] Miguel Simmons MD [address] [place] [address] 09/26/2017 08:28:13 09/26/2017 11:56:13 Administration of influenza vaccine 13656797 Z23 Body mass index 25-29 - overweight 557693842 Z68.27 Active or passive immunization 827900830 Z23 [id number] Aneta Unger [address] [place] [address] 10/02/2017 13:34:02 10/02/2017 15:18:01 Fever 781068811 R50.9 Cough 83360073 R05 Allergic rhinitis 411766 04 J30.9 Upper resp iratory infection 61640563 J06.9 [id number] Aneta Unger [address] [place] [address] 10/19/2017 11:15:48 10/19/2017 12:10:05 Vaccination required 140963063 Z28.3 Administra tion of measles and mumps and rubella vaccine 74349114 Z23 Tuberculos is screening 803824327 Z11.1 Body mass index 25-29 - overweight 111441162 Z68.27 [id number] Mariusz Coombs MD [address] [place] [address] 12/12/2017 14:17:51 12/12/2017 15:27:00 Influenza-like symptoms 522647783 R68.89 Pain in throat 983585482 R07.0 Hypercholesterolemia 136 63087 E78.00 Migraine 66173743 G43.90 9 Sinusitis 46839165 J32.9 [id number] Mariusz Coombs MD [address] [place] [address] 12/27/2017 15:58:30 12/27/2017 17:40:29 Ankle pain 252753915 M25.579 Strain of tendon of foot and ankle 839450418 S96.912A [id number] Kathy Weathers [address] [place] [address] 04/03/2018 09:05:07 04/03/2018 10:01:06 Body mass index 20-24 - normal 103400287 Z68.24 Fatigue 76594815 R53.83 Pain of joint 50520738 M 25.50 [id number] Sunny James MD [address] [place] [address] 08/28/2018 15:39:45 08/28/2018 16:51:17 Hypercholesterolemia 79522141 E78.00 Body mass index 25-29 - overweight 083065907 Z68.25 [id number] Jennie Wilder MD [address] [place] [address] 10/29/2018 15:51:32 10/29/2018 17:37:34 Influenza-like illness 70720821 B34.9 [id number] Sunny James MD [address] [place] [address] 03/06/2019 08:44:39 03/06/2019 12:35:06 Anaphylaxis caused by hymenoptera venom 933882083 T63.481A Contact de rmatitis caused by urushiol from [facility] gerry 797611680 L25.5 Body mass index 25-29 - overweight 326037602 Z68.26 [id number] Kathy Weathers[address] [place] [address] 06/17/2020 16:44:07 06/17/2020 17:49:20 Migraine 58543162 G43.909 Mixed anxi ety and depressive disorder 573451056 F41.8 [id number] Yamilka Byrne LCSW [facility] [address] [place] [address] 06/22/2020 10:08:56 06/22/2020 11:06:01 [id number] Kathy Weathers[address] [place] [address] 07/29/2020 15:53:03 07/29/2020 16:51:31 Mixed anxiety and depressive disorder 398510813 F41.8 [id number] Kathy Weathers [address] [place] [address] 09/20/2020 09:09:49 09/20/2020 09:48:23 Viral screening 071986041 Z11.59 [id number] Yamilka Byrne LCSW [facility] [address] [place] [address] 10/07/2020 09:09:47 10/07/2020 10:27:27 [id number] Yamilka Byrne [facility] [address] [place] [address] 11/29/2020 15:08:59 11/29/2020 16:06:54 [id number] Kathy Weathers [place] [address] [place] [address] 02/09/2021 14:16:30 02/09/2021 15:05:34 Pain of multiple joints 11911908 M25.50 [id number] Kathy Weathers [address] [place] [address] 04/18/2021 09:57:11 04/18/2021 11:13:07 Hypercholesterolemia 55002274 E78.00 Mixed anxi ety and depressive disorder 372886907 F41.8 Adult heal th examination 056549803 Z00.00 Exercises education, guidance, and counseling 042607800 Z71.82 HIV screening 999590818 Z11.4 Viral screening 56041790 4 Z11.59 Mass of right breast 349 9438428 3787727 N63.10 Hyperlipidemia 66888729 E78.5 Screening for cardiovascular system disease 035935808 Z13.6 Fatigue 35675098 R53.83 Body mass index 25-29 - overweight 692916904 Z68.26 [id number] Yamilka Byrne [facility] [address] [place] [address] 04/25/2021 15:03:13 04/25/2021 16:06:02 [id number] Kathy Weathers [address] [place] [address] 05/10/2021 12:34:00 05/10/2021 14:47:22 Fever 181876646 R50.9 COVID-19 083390434 U07.1 [id number] Kathy Weathers [address] [place] [address] 06/02/2021 16:01:35 06/02/2021 17:27:15 Persistent cough 605200393 R05 [address]-COVID-19 syndrome 3570629634 B97.89 Mixed anxi ety and depressive disorder 512057382 F41.8 [id number] Yamilka Byrne [facility] [address] [place] [address] 10/19/2021 11:12:22 10/19/2021 12:06:41 [id number] Karl Franks MD [address] [place] [address] 03/26/2023 10:19:58 03/26/2023 12:59:53 Diabetes mellitus 85538799 E11.9 Screening for malignant neoplasm of colon 179855230 Z12.11 Body mass index 25-29 - overweight 657492186 Z68.27 Overweight 213335664 E66 .3 Adult atte ntion deficit hyperactivity disorder 308625103 F90.9 Long-term drug therapy 453175688 Z79.232 [id number] Karl Franks MD [address] [place] [address] 04/24/2023 13:54:24 04/24/2023 14:35:53 Adult attention deficit hyperactivity disorder 764712381 F90.9 Screening for malignant neoplasm of colon 671377225 Z12.11 [id number] Karl Franks MD [address] [place] [address] 05/22/2023 13:09:23 05/22/2023 13:55:42 Adult attention deficit hyperactivity disorder 177771553 F90.9 no code device; will need to resend Rx Screening for malignant neoplasm of cervix 692208747 Z12.4 Mixed anxi ety and depressive disorder 344438161 F41.8 [id number] Karl Franks MD [address] [place] [address] 06/15/2023 09:41:08 06/15/2023 10:34:29 Diabetes mellitus 04449111 E11.9 Adult atte ntion deficit hyperactivity disorder 354500487 F90.9 Pain of joint 86485428 M 25.50 [id number] Karl Franks MD [facility] [address] [place] [address] 07/23/2023 13:25:45 07/23/2023 13:47:56 Attention deficit hyperactivity disorder 312901381 F90.9 Adult atte ntion deficit hyperactivity disorder 820637657 F90.9 Mixed anxi ety and depressive disorder 922683074 F41.8 refill requested [id number] Anupam Bell DO [facility] [address] 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 See scanned completed form. Exercises education, guidance, and counseling 274308990 Z71.82 The patient was advised to continue a healthy diet and exercise regularly. Health Concerns Section Related Observation LastModified by Organization Detai ls LastModified Time None Recorded Concern Status LastModified by Organization Details LastModified Time None Recorded Advance Directives Directive N: Payers Insurance Date Sequence Insurance Name Policy Number Policy Galindo Covered Member ID Galindo Member ID Guarantor Name 05/17/2023 1 [employer] - [facility] (PPO) Carlene Iwona Colemire [id number] Carlene Iwona Colemire 05/17/2023 1 *SELF PAY* Gi nger Iwona Colemire 08/08/2019 1 [place] [id number] Christopher Iwona Colemire [id number] Carlene Iwona Colemire 06/02/2021 1 [employer] [facility] (MEDICAID REPLACEMENT - HMO) CSKY Carlene R Colemire [id number] Carlene Iwona Colemire 06/02/2021 1 [employer] [facility] (MEDICAID REPLACEMENT - HMO) Carlene Iwona Colemire [id number] Carlene Iwona Colemire 08/04/2020 1 *SELF PAY* Gi nger Iwona Colemire 06/02/2021 1 [employer] - [employer] [place] (MEDICAID RE[place]AC[place] - HMO) CSKY Carlene R Colemire [id number] Carlene Iwona Colemire 06/02/2021 [place] [facility] [place] Carlene R Colemire [id number] Carlene Iwona Colemire 06/02/2021 1 [employer] [facility] Carlene Iwona Colemire [id number] Carlene Iwona Colemire 03/26/2023 1 [employer] (POS) Carlene Iwona Colemire [id number] Carlene Iwona Colemire 06/02/2021 [place] Carlene R Colemire [id number] Carlene Iwona Colemire 03/26/2023 [place] [facility] Carlene R Colemire [id number] Carlene Iwona Colemire 06/02/2021 1 [place] [employer] [id number] Carlene Iwona Colemire [id number] Carlene Iwona Colemire 06/02/2021 1 [place] [id number] Carlene Iwona Colemire [id number] Carlene Iwona Colemire Notes Date Note Type Note Provider Name and Address Organization Details Recorded Time 04/24/2023 text/html Patient presents today or follow up regarding ADHD.Patient reports that Adderall has been effective. Reports continued issues with concentration. Reports that she is needing refills on Adderall this date. Patient denies any adverse effects r/t medication. Patient denies any SI/HI. Kalr Franks MD [address], [place], [address], [place] - [facility] 04/24/2023 17:14:25 05/22/2023 text/html Patient presents today or follow up regarding ADHD.Patient reports that Adderall has been effective. Reports that she is needing refills on Adderall this date. Patient denies any adverse effects r/t medication. Patient denies any SI/HI. Pt pleased with results of medication and wishes to continue. SARY reviewed and appropriate. Karl Franks MD [address], [place], [address], [facility] - [facility] 05/22/2023 14:26:27 06/15/2023 text/html ROS as noted in the HPI Patient presents today or follow up regarding ADHD, DM2 and polyarticular pain.Patient reports that Adderall has been effective. Reports that she is needing refills on Adderall this date. Patient denies any adverse effects r/t medication. Patient denies any SI/HI. Pt pleased with results of medication and wishes to continue. SARY reviewed and appropriate.Patient also presents for DM follow up. Patient currently not on medications, controls with diet. Patient does not regularly check blood glucose. Not currently following with DM.Patient denies any F/C, N/V/D, chest pain, tightness, palpitations, SOA, cough, congestion, mood changes, SI/HI.Pt describes polyarticular pain as dull and grinding, without radiation, constant with a waxing and waning course, worst in low back and knees, associated swelling with knees, relieved by rest, NSAIDs, warmth. Denies recent imaging. Karl Franks MD [address], [place], [address], [facility] - [facility] 06/15/2023 18:15:52 07/23/2023 text/html ROS as noted in the HPI Patient presents today or follow up regarding ADHD, DM2 and polyarticular pain.Patient reports that Adderall has been effective. Reports that she is needing refills on Adderall this date. Patient denies any adverse effects r/t medication. Patient denies any SI/HI. Pt pleased with results of medication and wishes to continue. SARY reviewed and appropriate.Patient denies any F/C, N/V/D, chest pain, tightness, palpitations, SOA, cough, congestion, mood changes, SI/HI. 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 Anupam Bell, [address], [place], [address], [place] - [facility] 07/27/2023 14:41:57 OBGyn Episode No OBEpisode recorded.
--- OUTSIDE RECORDS SUMMARY | 2025-09-10 11:56 | XMS_ITS | Encounter Summary ---
Author Organization [facility] Address [address] [place] [address] Care Team Providers Care Linen Supervisor Name Role Phone Santy Sanchez MD Primary Care Provider Unava ilable Freddy CLARK MD, Malvin Washburn Unavailable Keira vailable Doctor, Lien Primary Care Provider Unavailabl e Tono Astudillo MD Unavailable Encounter Details Date Type Department Care Team (Late st Contact Info) Description 06/12/2006 Historical Encounter Global Giovanna Hare MD [address] [place] [address] Social History Tobacco Use Types Packs/Day Years [...] on filedocumented in this encounter Care Teams Linen Supervisor Relationship Specialty Start Date End Date Santy Sanchez MD PCP - General Internal Medicine 09/18/10 02/26/14 [facility] [place] PCP - General Family Medicine 02/27/14 10/26/17 Tono Astudillo MD [address] [place] [address] PCP - Family Medicine Family Medicine 03/10/25 Malvin Hayes III, MD Gastroenterology 10/10/10 documented as of this encounter
--- OUTSIDE RECORDS SUMMARY | 2025-09-10 11:56 | XMS_ITS | Encounter Summary ---
Author Organization [facility] Address [address] [place] [address] Care Team Providers Care Regional Refrigerated Cdl Truck Driver Name Role Phone Santy Sanchez MD Primary Care Provider Unava ilable Freddy CLARK MD, Malvin Washburn Unavailable Keira vailable Doctor, Lien Primary Care Provider Unavailabl e Tono Astudillo MD Unavailable Encounter Details Date Type Department Care Team (Late st Contact Info) Description 05/12/2006 Historical Encounter Global Giovanna Hare MD [address] [place] [address] Social History Tobacco Use Types Packs/Day Years [...] on filedocumented in this encounter Care Teams Regional Refrigerated Cdl Truck Driver Relationship Specialty Start Date End Date Santy Sanchez MD PCP - General Internal Medicine 09/18/10 02/26/14 [facility] [place] PCP - General Family Medicine 02/27/14 10/26/17 Tono Astudillo MD [address] [place] [address] PCP - Family Medicine Family Medicine 03/10/25 Malvin Hayes III, MD Gastroenterology 10/10/10 documented as of this encounter
--- OUTSIDE RECORDS SUMMARY | 2025-09-10 11:56 | XMS_ITS | Encounter Summary ---
Author Organization [facility] Address [address] [facility] [place] [address] Care Team Providers Care Energy Projects Lead Name Role Phone Santy Sanchez MD Primary Care Provider Unava ilable Freddy CLARK MD, Malvin Washburn Unavailable Keira vailable Doctor, Lien Primary Care Provider Unavailabl e Tono Astudillo MD Unavailable Encounter Details Date Type Department Care Team (Late st Contact Info) Description 07/24/2006 Historical Encounter Global Maria Del Carmen Holguin, CONFERENCE CONCIERGE [address] [place] [address] Social History Tobacco Use Types [...] on filedocumented in this encounter Care Teams Energy Projects Lead Relationship Specialty Start Date End Date Santy Sanchez MD PCP - General Internal Medicine 09/18/10 02/26/14 Doctor, Lien tensed [place] PCP - General Family Medicine 02/27/14 10/26/17 Tono Astudillo MD [address] [place] [address] PCP - Family Medicine Family Medicine 03/10/25 Malvin Hayes III, MD Gastroenterology 10/10/10 documented as of this encounter
--- OUTSIDE RECORDS SUMMARY | 2025-09-10 11:56 | XMS_ITS | Encounter Summary ---
Author Organization [facility] Address [address] [place] [address] Care Team Providers Care Dog Raiser Name Role Phone Santy Sanchez MD Primary Care Provider Unava ilable Freddy CLARK MD, Malvin Washburn Unavailable Keira vailable Doctor, Lien Primary Care Provider Unavailabl e Tono Astudillo MD Unavailable Encounter Details Date Type Department Care Team (Late st Contact Info) Description 11/06/2006 Historical Encounter Global Inés Melendez, ALENA [address] [facility] [place] [address] Social History Tobacco Use Types Packs/Day [...] on filedocumented in this encounter Care Teams Dog Raiser Relationship Specialty Start Date End Date Santy Sanchez MD PCP - General Internal Medicine 09/18/10 02/26/14 Doctor, [facility] [place] PCP - General Family Medicine 02/27/14 10/26/17 Tono Astudillo MD [address] [place] [address] PCP - Family Medicine Family Medicine 03/10/25 Malvin Hayes III, MD Gastroenterology 10/10/10 documented as of this encounter
--- OUTSIDE RECORDS SUMMARY | 2025-09-10 11:56 | XMS_ITS | Encounter Summary ---
Author Organization [facility] Address [address] [place] [address] Care Team Providers Care Central Processing Tech Name Role Phone Santy Sanchez MD Primary Care Provider Unava ilable Freddy CLARK MD, Malvin Washburn Unavailable Keira vailable Doctor, Lien Primary Care Provider Unavailmikie e Tono Astudillo MD Unavailable Encounter Details Date Type Department Care Team (Late st Contact Info) Description 03/14/2006 Historical Encounter [place] Social History Tobacco Use Types Packs/Day Years [...] on filedocumented in this encounter Care Teams Central Processing Tech Relationship Specialty Start Date End Date Santy Sanchez MD PCP - General Internal Medicine 09/18/10 02/26/14 Doctor, Lien hopkins [place] PCP - General Family Medicine 02/27/14 10/26/17 Tono Astudillo MD [address] [place] [address] PCP - Family Medicine Family Medicine 03/10/25 Malvin Hayes III, MD Gastroenterology 10/10/10 documented as of this encounter
--- OUTSIDE RECORDS SUMMARY | 2025-09-10 11:56 | XMS_ITS | Encounter Summary ---
Author Organization [facility] Address [address] [place] [address] Care Team Providers Care Director Investor Relations Name Role Phone Santy Sanchez MD Primary Care Provider Unava ilable Freddy CLRAK MD, Malvin Washburn Unavailable Keira vailable Doctor, Lien Primary Care Provider UnavailTono [place] MD Unavailable Encounter Details Date Type Department Care Team (Late st Contact Info) Description 05/10/2006 Historical Encounter Global Boris Cope MD [address] [place], [place] [id number] Social History Tobacco Use Types Packs/Day Years [...] on filedocumented in this encounter Care Teams Director Investor Relations Relationship Specialty Start Date End Date Santy Sanchez MD PCP - General Internal Medicine 09/18/10 02/26/14 [facility] [place] PCP - General Family Medicine 02/27/14 10/26/17 Tono Astudillo MD [address] [place] [address] PCP - Family Medicine Family Medicine 03/10/25 Malvin Hayes III, MD Gastroenterology 10/10/10 documented as of this encounter
--- OUTSIDE RECORDS SUMMARY | 2025-09-10 11:56 | XMS_ITS | Clinical Summary ---
Author Organization [facility] Address [address] [place] [address] Care Team Providers Care Pin Inserter Regulator Name Role Phone Provider, No Known Primary Care Provider Unavail able Allergies No known active allergies Medications buPROPion XL (Wellbutrin XL) 300 MG 24 hr tablet Take 300 mg by mouth Daily. Active busPIRone (BUSPAR) 5 MG tablet Take 5 mg by mouth 3 (Three) Times a Day. Active multivitamin with minerals (MULTIVITAMIN ADULT PO) Take 1 tablet by mouth Daily. Active Active Problems No known active problems Social History Tobacco Use Types Packs/Day Years Used Date Smoking Tobacco: Never Smokeless Tobacco: Never Abuse Screen Answer Date Recorded Unsafe at Home or Work/School Not on file Feels Threatened by Someone? Not on file 05/2023 Does Anyone Keep You from Co ntacting Others or Doint Things Outside the Home? Not on file 07/02/2023 Physical Sign of Abuse Present Not on file 1 Housing Stability Answer Date Recorded Current Living Arrangements Not on file 05/2023 Potentially Unsafe Housing Conditions Not on ramos e 07/02/2023 Family and Community Support Answer Javier e Recorded Help with Day-to-Day Activities Not on file 07/02/2023 Lonely or Isolated Not on file 07/02/2023 Employment Answer Date Recorded Do you want help finding or keeping work or a sarah b? Not on file 07/02/2023 Disabilities Answer Date Recorded Concentrating, Remembering, or Making Decisions Difficulty Not on file 07/02/2023 Doing Errands Independently Difficulty Not on fi le 07/02/2023 Education Answer Date Recorded Help with school or training? Not on file Preferred Language Not on file 07/02/2023 Comments No Sex and Gender Information Value Date Recorded Sex Assigned at Not on file Legal Sex Female 11:39 AM EDT Gender Identity Not on file Sexual Orientation Not on file Plan of Treatment Health Maintenance Due Date Last Done Comments Annual Gynecologic Pelvic and Breast Exam 1971 MAMMOGRAM 2011 COLOGUARD 2016 COLON CANCER SCREENING 5 YEAR SIGMOIDOSCOPY 2016 COLONOSCOPY [address] CANCER SCREENING 2016 CT COLONOGRAPHY 2016 FECAL OCCULT BLOOD TEST 2016 FIT Testing (1 year) 2016 Pneumococcal Vaccine 50+ (1 of 1 - PCV) 2021 ZOSTER VACCINE (1 of 2) 2021 ANNUAL PHYSICAL 02/13/2022 HEPATITIS C SCREENING 02/13/2022 INFLUENZA VACCINE 04/24/2025 TDAP/TD VACCINES (2 - Td or Tdap) 06/21/2027 017 [place] [address] Care Teams Pin Inserter Regulator Relationship Specialty Start Date End Date Provider, No Known [facility] [place] [address] PCP - General 02/13/22
--- OUTSIDE RECORDS SUMMARY | 2025-09-10 11:56 | XMS_ITS | Encounter Summary ---
Author Organization [facility] Address [address] [place] [address] Care Team Providers Care Commissary Officer Name Role Phone Santy Sanchez MD Primary Care Provider Unava ilable Freddy CLARK MD, Malvin Washburn Unavailable Keira vailable Doctor, Lien Primary Care Provider UnavailTono Randall MD Unavailable Encounter Details Date Type Department Care Team (Late st Contact Info) Description 08/17/2006 Historical Encounter Global Ramiro Torres MD [address] [place] [address] Social History Tobacco Use Types [...] on filedocumented in this encounter Care Teams Commissary Officer Relationship Specialty Start Date End Date aSnty Sanchez MD PCP - General Internal Medicine 09/18/10 02/26/14 Lien [place] PCP - General Family Medicine 02/27/14 10/26/17 Tono Astudillo MD [address] [place] [address] PCP - Family Medicine Family Medicine 03/10/25 Malvin Hayes III, MD Gastroenterology 10/10/10 documented as of this encounter
--- OUTSIDE RECORDS SUMMARY | 2025-09-10 11:56 | XMS_ITS | Encounter Summary ---
Author Organization [facility] Address [address] [place] [address] Care Team Providers Care Video Producer Name Role Phone Santy Sanchez MD Primary Care Provider Unava ilable Freddy CLARK MD, Malvin Washburn Unavailable Keira vailable Doctor, Lien Primary Care Provider Unavailabl e Tono Astudillo MD Unavailable Encounter Details Date Type Department Care Team (Late st Contact Info) Description 06/11/2006 Historical Encounter Global Trevin Taylor MD [address] [id number] Social History Tobacco Use Types Packs/Day Years [...] on filedocumented in this encounter Care Teams Video Producer Relationship Specialty Start Date End Date Santy Sanchez MD PCP - General Internal Medicine 09/18/10 02/26/14 [facility] PCP - General Family Medicine 02/27/14 10/26/17 Tono Astudillo MD [address] [place] [address] PCP - Family Medicine Family Medicine 03/10/25 Malvin Hayes III, MD Gastroenterology 10/10/10 documented as of this encounter
--- OUTSIDE RECORDS SUMMARY | 2025-09-10 11:56 | XMS_ITS | Encounter Summary ---
Author Organization [facility] Address [address] [place] [address] Care Team Providers Care Mid Level Clinician Name Role Phone Santy Sanchez MD Primary Care Provider Unava ilable Freddy CLARK MD, Malvin Washburn Unavailable Keira vailable Doctor, Lien Primary Care Provider UnavailTono Randall MD Unavailable Encounter Details Date Type Department Care Team (Late st Contact Info) Description 08/14/2006 Historical Encounter Global Brent Mccullough [place] [facility] [place] [facility] [address] [place], [place] [id number] Social History Tobacco Use Types Packs/Day Years [...] on filedocumented in this encounter Care Teams Mid Level Clinician Relationship Specialty Start Date End Date Santy Sanchez MD PCP - General Internal Medicine 09/18/10 02/26/14 [facility], [facility] PCP - General Family Medicine 02/27/14 10/26/17 Tono Astudillo MD [address] [place] [address] PCP - Family Medicine Family Medicine 03/10/25 Malvin Hayes III, MD Gastroenterology 10/10/10 documented as of this encounter
--- OUTSIDE RECORDS SUMMARY | 2025-09-10 11:56 | XMS_ITS | Encounter Summary ---
Author Organization [facility] Address [address] [place] [address] Care Team Providers Care Ramp Service Man Name Role Phone Santy Sanchez MD Primary Care Provider Unava ilable Freddy CLARK MD, Malvin Washbrun Unavailable Keira vailable Doctor, Lien Primary Care Provider Unavailabl e Tono Astudillo MD Unavailable Encounter Details Date Type Department Care Team (Late st Contact Info) Description 10/09/2006 Historical Encounter Global Giovanna Hare MD [address] [place] [address] Social History Tobacco Use Types Packs/Day Years [...] on filedocumented in this encounter Care Teams Ramp Service Man Relationship Specialty Start Date End Date Santy Sanchez MD PCP - General Internal Medicine 09/18/10 02/26/14 [facility] PCP - General Family Medicine 02/27/14 10/26/17 Tono Astudillo MD [address] [place] [address] PCP - Family Medicine Family Medicine 03/10/25 Malvin Hayes III, MD Gastroenterology 10/10/10 documented as of this encounter
--- OUTSIDE RECORDS SUMMARY | 2025-09-10 11:56 | XMS_ITS | Encounter Summary ---
Author Organization [facility] Address [address] [place] [address] Care Team Providers Care Certified Medical Asst Name Role Phone Satny Sanchez MD Primary Care Provider Unava ilable Freddy CLARK MD, Malvin Washburn Unavailable Keira vailable Doctor, Lien Primary Care Provider UnavailTono Randall MD Unavailable Encounter Details Date Type Department Care Team (Late st Contact Info) Description 08/19/2006 Historical Encounter Global Ramiro Torres MD [address] [place] [address] Social History Tobacco Use Types [...] on filedocumented in this encounter Care Teams Certified Medical Asst Relationship Specialty Start Date End Date Santy Sanchez MD PCP - General Internal Medicine 09/18/10 02/26/14 Lien [place] PCP - General Family Medicine 02/27/14 10/26/17 Tono Astudillo MD [address] [place] [address] PCP - Family Medicine Family Medicine 03/10/25 Malvin Hayes III, MD Gastroenterology 10/10/10 documented as of this encounter
--- OUTSIDE RECORDS SUMMARY | 2025-09-10 11:56 | XMS_ITS | Encounter Summary ---
Author Organization [facility] Address [address] [facility] [place] [address] Care Team Providers Care Social Media Campaign Manager Name Role Phone Santy Sanchez MD Primary Care Provider Unava ilable Freddy CLARK MD, Malvin Washburn Unavailable Keira vailable Doctor, Lien Primary Care Provider Unavailabl e Tono Astudillo MD Unavailable Encounter Details Date Type Department Care Team (Late st Contact Info) Description 06/27/2006 Historical Encounter Global Maria Del Carmen Holguin, RESEARCH & ANALYTICS MANAGER [id number] [place] [address] Social History Tobacco Use Types [...] on filedocumented in this encounter Care Teams Social Media Campaign Manager Relationship Specialty Start Date End Date Santy Sanchez MD PCP - General Internal Medicine 09/18/10 02/26/14 Doctor, Lien [place] PCP - General Family Medicine 02/27/14 10/26/17 Tono Astudillo MD [address] [place] [address] PCP - Family Medicine Family Medicine 03/10/25 Malvin Hayes III, MD Gastroenterology 10/10/10 documented as of this encounter
--- OUTSIDE RECORDS SUMMARY | 2025-09-10 11:56 | XMS_ITS | Encounter Summary ---
Author Organization [facility] Address [address] [place] [address] Care Team Providers Care Shader And Toner Name Role Phone Santy Sanchez MD Primary Care Provider Unava ilable Freddy CLARK MD, Malvin Washburn Unavailable Keira vailable Doctor, Lien Primary Care Provider Unavailabl e Tono Astudillo MD Unavailable Encounter Details Date Type Department Care Team (Late st Contact Info) Description 05/17/2006 Historical Encounter Global Giovanna Hare MD [address] [place] [address] Social History Tobacco Use Types Packs/Day Years [...] on filedocumented in this encounter Care Teams Shader And Toner Relationship Specialty Start Date End Date Santy Sanchez MD PCP - General Internal Medicine 09/18/10 02/26/14 [facility] PCP - General Family Medicine 02/27/14 10/26/17 Tono Astudillo MD [address] [place] [place] [address] PCP - Family Medicine Family Medicine 03/10/25 Malvin Hayes III, MD Gastroenterology 10/10/10 documented as of this encounter
--- OUTSIDE RECORDS SUMMARY | 2025-09-10 11:56 | XMS_ITS | Encounter Summary ---
Author Organization [facility] Address [address] [place] [address] Care Team Providers Care Gravity Prospecting Supervisor Name Role Phone Santy Sanchez MD Primary Care Provider Unava ilable Freddy CLARK MD, Malvin Washburn Unavailable Keira vailable Doctor, No Primary Care Provider Unavailabl e Tono Astudillo MD Unavailable Encounter Details Date Type Department Care Team (Late st Contact Info) Description 04/15/2006 Historical Encounter Global Manuel Mireles DO Social History Tobacco Use Types Packs/Day Years [...] on filedocumented in this encounter Care Teams Gravity Prospecting Supervisor Relationship Specialty Start Date End Date Santy Sanchez MD PCP - General Internal Medicine 09/18/10 02/26/14 Doctor, Lien [place]IT[place] PCP - General Family Medicine 02/27/14 10/26/17 Tono Astudillo MD [address] [place] [address] PCP - Family Medicine Family Medicine 03/10/25 Malvin Hayes III, MD Gastroenterology 10/10/10 documented as of this encounter
--- OUTSIDE RECORDS SUMMARY | 2025-09-10 11:56 | XMS_ITS | Encounter Summary ---
Author Organization [facility] Address [address] [place] [address] Care Team Providers Care Community Planner Name Role Phone Sanyt Sanchez MD Primary Care Provider Unava ilable Freddy CLARK MD, Malvin Washburn Unavailable Keira vailable Doctor, No Primary Care Provider Unavailabl e Tono Astudillo MD Unavailable Encounter Details Date Type Department Care Team (Late st Contact Info) Description 01/18/2008 Historical Encounter Global Mikayla Lopez PA-C Social History Tobacco Use Types Packs/Day Years [...] on filedocumented in this encounter Care Teams Community Planner Relationship Specialty Start Date End Date Santy Sanchez MD PCP - General Internal Medicine 09/18/10 02/26/14 Doctor, Lien [place] PCP - General Family Medicine 02/27/14 10/26/17 Tono Astudillo MD [address] [place] [address] PCP - Family Medicine Family Medicine 03/10/25 Malvin Hayes III, MD Gastroenterology 10/10/10 documented as of this encounter
--- OUTSIDE RECORDS SUMMARY | 2025-09-10 11:56 | XMS_ITS | Encounter Summary ---
Author Organization [facility] Address [address] [facility] [place] [address] Care Team Providers Care Bobbin Presser Name Role Phone Santy Sanchez MD Primary Care Provider Unava ilable Freddy CLARK MD, Malvin Washburn Unavailable Keira vailable Doctor, Lien Primary Care Provider Unavailabl e Tono Astudillo MD Unavailable Encounter Details Date Type Department Care Team (Late st Contact Info) Description 05/28/2007 Historical Encounter Global Maria Del Carmen Holguin, OUTSIDE SALES CONSULTANT [address] [place] [address] Social History Tobacco Use Types [...] on filedocumented in this encounter Care Teams Bobbin Presser Relationship Specialty Start Date End Date Santy Sanchez MD PCP - General Internal Medicine 09/18/10 02/26/14 Doctor, Lien [place] RITO PCP - General Family Medicine 02/27/14 10/26/17 Tono Astudillo MD [address] [place] [address] PCP - Family Medicine Family Medicine 03/10/25 Malvin Hayes III, MD Gastroenterology 10/10/10 documented as of this encounter
--- OUTSIDE RECORDS SUMMARY | 2025-09-10 11:57 | XMS_ITS | Encounter Summary ---
Author Organization [facility] Address [address] [place] [address] Care Team Providers Care Mustanger Name Role Phone Santy Sanchez MD Primary Care Provider Unava ilable Freddy CLARK MD, Malvin Washburn Unavailable Keira vailable Doctor, Lien Primary Care Provider Unavailabl e Tono Astudillo MD Unavailable Encounter Details Date Type Department Care Team (Late st Contact Info) Description 08/14/2003 Historical Encounter Global Tono Aquino MD [address] [place] [address] Social History Tobacco Use Types Packs/Day Years [...] on filedocumented in this encounter Care Teams Mustanger Relationship Specialty Start Date End Date Santy Sanchez MD PCP - General Internal Medicine 09/18/10 02/26/14 Doctor, Lien [place] RIT[place] PCP - General Family Medicine 02/27/14 10/26/17 Tono Astudillo MD [address] [place] [address] PCP - Family Medicine Family Medicine 03/10/25 Malvin Hayes III, MD Gastroenterology 10/10/10 documented as of this encounter
--- OUTSIDE RECORDS SUMMARY | 2025-09-10 11:57 | XMS_ITS | Clinical Summary ---
Author Organization [facility] Address [address] [place] [address] Care Team Providers Care Pump House Engineer Name Role Phone Unavailable Primary Care Provider Unavailabl e Allergies Active Allergy Reactions Criticality Noted Date Comments Moxifloxacin Other 09/18/2010 Hallucinations Sumatriptan Succinate Anaphylaxis High 10/27/2015 Tongue and throat swell Medications buPROPion XL (WELLBUTRIN XL) 300 mg 24 hr tablet 300 mg. Active busPIRone (BUSPAR) 5 mg tablet Take 5 mg by mouth in the morning and at bedtime. Active amphetamine-dex troamphetamine (ADDERALL) 10 mg tablet 10 mg. 01/13/2025 Active amphetamine-dex troamphetamine XR (ADDERALL XR) 30 mg 24 hr capsule 30 mg. 01/13/2025 Active escitalopram (LEXAPRO) 10 mg tablet Take 1 tablet by mouth 1 (one) time each day. 01/13/2025 Active guanFACINE (INTUNIV) 1 mg 24 Hour ER tablet 1 mg. 12/11/2024 Active metoprolol succinate (TOPROL-XL) 25 mg 24 hr tablet 25 mg. 01/13/2025 Act sisi multivitamine, geriatric, (CENTRUM SILVER) tablet Take 1 tablet by mouth 1 (one) time each day. Active clindamycin (CLEOCIN) 300 mg capsule Take 1 (ONE) capsule (300 mg total) by mouth in the morning and 1 (ONE) capsule (300 mg total) in the evening and 1 (ONE) capsule (300 mg total) before bedtime. 21 capsule 01/19/2025 Active ibuprofen (ADVIL,MOTRIN) 600 mg tablet Take 1 (ONE) tablet (600 mg total) by mouth every 6 (six) hours if needed for mild pain. Take with regular strength Tylenol 24 tablet 01/19/2025 Active Active Problems Problem Noted Date Diagnosed Date Numbness in both hands 09/09/2021 Abnormal liver function tests 09/19/2010 Chest pain 09/19/2010 Diabetes mellitus 09/19/2010 HTN (hypertension) 09/19/2010 Hyperlipidemia 09/19/2010 Migraines 09/19/2010 Tachycardia 09/19/2010 Social History Tobacco Use Types Packs/Day Years Used Date Smoking Tobacco: Never Smokeless Tobacco: Never Tobacco Cessation:Counseling Given: Not Answered Alcohol Use Standard Drinks/Week Comments Never 0 (1 standard drink = 0.6 oz pur e alcohol) Comments Unknown Sex and Gender Information Value Date Recorded Sex Assigned at Not on file Legal Sex Female 9:52 AM PDT Gender Identity Not on file Sexual Orientation Not on file Last Filed Vital Signs Vital Sign Reading Time Taken Comments Blood Pressure 150/103 01/19/2025 2:11 PM EDT Pulse 88 01/19/2025 2:11 PM EDT Temperature - - Respiratory Rate - - Oxygen Saturation - - Inhaled Oxygen Concentration - - Weight - - Height - - Body Mass Index - - Plan of Treatment Health Maintenance Due Date Last Done Comments Dental Oral Exam 1971 Dental Prophylaxis 1971 Dental X-Ray: Bitewings 1971 Dental X-Ray: Full Mouth 1971 Dental X-Ray: Panoramic 1971 Dental CBCT 01/20/2028 01/19/2025 Procedures Procedure Name Priority Date/Time Associated Diagnosis Comments CONE BEAM CT CAPTURE AND INTERPRETATION WITH FIELD OF VIEW OF BOTH JAWS; WITH OR WITHOUT CRANIUM Routine 01/19/2025 1:45 PM EDT from Last 3 Months or Most Recently Relevant [place] [id number] [facility] PPO
--- OUTSIDE RECORDS SUMMARY | 2025-09-10 11:57 | XMS_ITS | Encounter Summary ---
Author Organization [facility] Address [address] [place] [address] Care Team Providers Care Bell Spinner Name Role Phone Santy Sanchez MD Primary Care Provider Unava ilable Freddy CLARK MD, Malvin Washburn Unavailable Keira vailable Doctor, No Primary Care Provider Unavailabl e Tono Astudillo MD Unavailable Encounter Details Date Type Department Care Team (Late st Contact Info) Description 09/19/2005 Historical Encounter Global Alyse Leo Social History Tobacco Use Types Packs/Day Years [...] on filedocumented in this encounter Care Teams Bell Spinner Relationship Specialty Start Date End Date Santy Sanchez MD PCP - General Internal Medicine 09/18/10 02/26/14 Doctor, Lien [place] RITO PCP - General Family Medicine 02/27/14 10/26/17 Tono Astudillo MD [address] [place] [address] PCP - Family Medicine Family Medicine 03/10/25 Malvin Hayes III, MD Gastroenterology 10/10/10 documented as of this encounter
--- OUTSIDE RECORDS SUMMARY | 2025-09-10 11:57 | XMS_ITS | Clinical Summary ---
Author Organization [facility] Address [address], [address] [place] [address] Care Team Providers Care Cover Remover Name Role Phone Virginia Montiel MD Primary Care Provider [phone] Social History Tobacco Use Types Packs/Day Years Used Date Smoking Tobacco: Never Assessed Comments Unknown Sex and Gender Information Value Date Recorded Sex Assigned at Not on file Legal Sex Female 12:13 PM EDT Gender Identity Not on file Sexual Orientation Not on file Plan of Treatment Not on file Insurance [employer] Care Teams Cover Remover Relationship Specialty Start Date End Date Virginia Montiel MD [address] [place] [address] PCP - General Family Practice 01/09/24
--- OUTSIDE RECORDS SUMMARY | 2025-09-10 11:57 | XMS_ITS | Encounter Summary ---
Author Organization [facility] Address [address] [place] [address] Care Team Providers Care Business Office Assistant Name Role Phone Santy Sanchez MD Primary Care Provider Unava ilable Freddy CLARK MD, Malvin Washburn Unavailable Keira vailable Doctor, No Primary Care Provider UnavailTono Randall MD Unavailable Encounter Details Date Type Department Care Team (Late st Contact Info) Description 08/29/2005 Historical Encounter Brigid Daniel APRN Social History Tobacco Use Types Packs/Day Years [...] on filedocumented in this encounter Care Teams Business Office Assistant Relationship Specialty Start Date End Date Santy Sanchez MD PCP - General Internal Medicine 09/18/10 02/26/14 Doctor, Lien [place] RIT[place] PCP - General Family Medicine 02/27/14 10/26/17 Tono Astudillo MD [address] [place] [address] PCP - Family Medicine Family Medicine 03/10/25 Malvin Hayes III, MD Gastroenterology 10/10/10 documented as of this encounter
--- OUTSIDE RECORDS SUMMARY | 2025-09-10 11:57 | XMS_ITS | Encounter Summary ---
Author Organization [facility] Address [address] [place] [address] Care Team Providers Care Cracking Still Operator Name Role Phone Santy Sanchez MD Primary Care Provider Unava ilable Freddy CLARK MD, Malvin Washburn Unavailable Keira vailable Doctor, Lien Primary Care Provider Unavailabl e Tono Astudillo MD Unavailable Encounter Details Date Type Department Care Team (Late st Contact Info) Description 02/11/2004 Historical Encounter Global Norberto Jordan Social History Tobacco Use Types Packs/Day Years [...] on filedocumented in this encounter Care Teams Cracking Still Operator Relationship Specialty Start Date End Date Santy Sanchez MD PCP - General Internal Medicine 09/18/10 02/26/14 Doctor, Lien [place] PCP - General Family Medicine 02/27/14 10/26/17 Tono Astudillo MD [address] [place] [address] PCP - Family Medicine Family Medicine 03/10/25 Malvin Hayes III, MD Gastroenterology 10/10/10 documented as of this encounter
--- OUTSIDE RECORDS SUMMARY | 2025-09-10 11:57 | XMS_ITS | Encounter Summary ---
Author Organization [facility] Address [address] [place] [address] Care Team Providers Care Medical Social Consultant Name Role Phone Santy Sanchez MD Primary Care Provider Unava ilable Freddy CLARK MD, Malvin Washburn Unavailable Keira vailable Doctor, Lien Primary Care Provider Unavailabl e Tono Astudillo MD Unavailable Encounter Details Date Type Department Care Team (Late st Contact Info) Description 07/17/2005 Historical Encounter Global Norberto Jordan Social History [...] on filedocumented in this encounter Care Teams Medical Social Consultant Relationship Specialty Start Date End Date Santy Sanchez MD PCP - General Internal Medicine 09/18/10 02/26/14 Doctor, Lien [place] R[place] PCP - General Family Medicine 02/27/14 10/26/17 Tono Astudillo MD [address] [place] [address] PCP - Family Medicine Family Medicine 03/10/25 Malvin Hayes III, MD Gastroenterology 10/10/10 documented as of this encounter
--- OUTSIDE RECORDS SUMMARY | 2025-09-10 11:57 | XMS_ITS | Encounter Summary ---
Author Organization [facility] Address [address] [place] [address] Care Team Providers Care Collections Technician Name Role Phone Santy Sanchez MD Primary Care Provider Unava ilable Freddy CLARK MD, Malvin Washburn Unavailable Keira vailable Doctor, Lien Primary Care Provider UnavailTono Randall MD Unavailable Encounter Details Date Type Department Care Team (Late st Contact Info) Description 04/01/2005 Historical Encounter Global Boris Cope MD [address] [place], [place] [id number] Social History Tobacco Use Types Packs/Day Years [...] on filedocumented in this encounter Care Teams Collections Technician Relationship Specialty Start Date End Date Santy Sanchez MD PCP - General Internal Medicine 09/18/10 02/26/14 [facility]ien [facility] PCP - General Family Medicine 02/27/14 10/26/17 Tono Astudillo MD [address] [place] [address] PCP - Family Medicine Family Medicine 03/10/25 Malvin Hayes III, MD Gastroenterology 10/10/10 documented as of this encounter
--- OUTSIDE RECORDS SUMMARY | 2025-09-10 11:57 | XMS_ITS | Encounter Summary ---
Author Organization [facility] Address [address] [place] [address] Care Team Providers Care Admeasurer Name Role Phone Santy Sanchez MD Primary Care Provider Unava ilable Freddy CLARK MD, Malvin Washburn Unavailable Keira vailable Doctor, Lien Primary Care Provider Unavailabl e Tono Astudillo MD Unavailable Encounter Details Date Type Department Care Team (Late st Contact Info) Description 03/30/2004 Historical Encounter Global Tono Aquino MD [address] [place] [address] Social History Tobacco Use Types [...] on filedocumented in this encounter Care Teams Admeasurer Relationship Specialty Start Date End Date Santy Sanchez MD PCP - General Internal Medicine 09/18/10 02/26/14 Doctor, Lien maria stein RITO PCP - General Family Medicine 02/27/14 10/26/17 Tono Astudillo MD [address] [place] [address] PCP - Family Medicine Family Medicine 03/10/25 Malvin Hayes III, MD Gastroenterology 10/10/10 documented as of this encounter
--- OUTSIDE RECORDS SUMMARY | 2025-09-10 11:57 | XMS_ITS | Encounter Summary ---
Author Organization [facility] Address [address] [place] [address] Care Team Providers Care Motorcoach Driver Name Role Phone Santy Sanchez MD Primary Care Provider Unava ilmargarita Hayes III, MD, Malvin Washburn Unavailable Keira vailable Doctor, Lien Primary Care Provider Unavailabl e Tono Astudillo MD Unavailable Encounter Details Date Type Department Care Team (Late st Contact Info) Description 11/17/2005 Historical Encounter Global Jesus Johnson MD [address] [facility] [address] [place] [id number] Social History Tobacco Use Types Packs/Day Years [...] on filedocumented in this encounter Care Teams Motorcoach Driver Relationship Specialty Start Date End Date Santy Sanchez MD PCP - General Internal Medicine 09/18/10 02/26/14 Lien [place] PCP - General Family Medicine 02/27/14 10/26/17 Tono Astudillo MD [address] [address] PCP - Family Medicine Family Medicine 03/10/25 Malvin Hayes III, MD Gastroenterology 10/10/10 documented as of this encounter
--- OUTSIDE RECORDS SUMMARY | 2025-09-10 11:57 | XMS_ITS | Encounter Summary ---
Author Organization [facility] Address [address] [place] [address] Care Team Providers Care Rear Load Truck Driver Name Role Phone Santy Sanchez MD Primary Care Provider Unava ilable Freddy CLARK MD, Malvin Washburn Unavailable Keira vailable Doctor, Lien Primary Care Provider Unavailabl e Tono Astudillo MD Unavailable Encounter Details Date Type Department Care Team (Late st Contact Info) Description 05/03/2005 Historical Encounter Global Tono Aquino MD [address] [place] [address] Social History Tobacco Use Types [...] on filedocumented in this encounter Care Teams Rear Load Truck Driver Relationship Specialty Start Date End Date Santy Sanchez MD PCP - General Internal Medicine 09/18/10 02/26/14 Doctor, Lien [place] RITO PCP - General Family Medicine 02/27/14 10/26/17 Tnoo Astudillo MD [address] [place] [address] PCP - Family Medicine Family Medicine 03/10/25 Malvin Hayes III, MD Gastroenterology 10/10/10 documented as of this encounter
--- OUTSIDE RECORDS SUMMARY | 2025-09-10 11:57 | XMS_ITS | Encounter Summary ---
Author Organization [facility] Address [address] [place] [address] Care Team Providers Care Director Of Golf Name Role Phone Santy Sanchez MD Primary Care Provider Unava ilable Freddy CLARK MD, Malvin Washburn Unavailable Keira vailable Doctor, Lien Primary Care Provider Unavailabl e Tono Astudillo MD Unavailable Encounter Details Date Type Department Care Team (Late st Contact Info) Description 07/15/2005 Historical Encounter Global Trevin Taylor MD [address] [place] [id number] Social History Tobacco Use Types Packs/Day Years [...] filedocumented in this encounter Care Teams Director Of Golf Relationship Specialty Start Date End Date Santy Sanchez MD PCP - General Internal Medicine 09/18/10 02/26/14 Doctor, [facility] R[facility] PCP - General Family Medicine 02/27/14 10/26/17 Tono Astudillo MD [address] [place] [address] PCP - Family Medicine Family Medicine 03/10/25 Malvin Hayes III, MD Gastroenterology 10/10/10 documented as of this encounter
--- OUTSIDE RECORDS SUMMARY | 2025-09-10 11:57 | XMS_ITS | Encounter Summary ---
Author Organization [facility] Address [address] [place] [address] Care Team Providers Care Cement Mixer Driver Name Role Phone Santy Sanchez MD Primary Care Provider Unava ilable Freddy CLARK MD, Malvin Washburn Unavailable Keira vailable Doctor, Lien Primary Care Provider UnavailTono Randall MD Unavailable Encounter Details Date Type Department Care Team (Late st Contact Info) Description 04/26/2005 Historical Encounter Global Brent Lockwood [address] [place] [address] Social History Tobacco Use Types Packs/Day Years [...] on filedocumented in this encounter Care Teams Cement Mixer Driver Relationship Specialty Start Date End Date Santy Sanchez MD PCP - General Internal Medicine 09/18/10 02/26/14 DoctorLien [place] PCP - General Family Medicine 02/27/14 10/26/17 Tono Astudillo MD [address] [place] [address] PCP - Family Medicine Family Medicine 03/10/25 Malvin Hayes III, MD Gastroenterology 10/10/10 documented as of this encounter
--- OUTSIDE RECORDS SUMMARY | 2025-09-10 11:57 | XMS_ITS | Encounter Summary ---
Author Organization [facility] Address [address] [place] [address] Care Team Providers Care Mechanical Manufacturing Engineer Name Role Phone Santy Sanchez MD Primary Care Provider Unava ilmargarita Hayes III, MD, Malvin Washburn Unavailable Keira vailable Doctor, Lien Primary Care Provider Unavailabl e Tono Astudillo MD Unavailable Encounter Details Date Type Department Care Team (Late st Contact Info) Description 11/25/2005 Historical Encounter Global Jesus Johnson MD [address] [facility] [address] [place] [phone] Social History Tobacco Use Types Packs/Day Years [...] on filedocumented in this encounter Care Teams Mechanical Manufacturing Engineer Relationship Specialty Start Date End Date Santy Sanchez MD PCP - General Internal Medicine 09/18/10 02/26/14 Lien [place] PCP - General Family Medicine 02/27/14 10/26/17 Tono Astudillo MD [address] [place] [address] PCP - Family Medicine Family Medicine 03/10/25 Malvin Hayes III, MD Gastroenterology 10/10/10 documented as of this encounter
--- OUTSIDE RECORDS SUMMARY | 2025-09-10 11:57 | XMS_ITS | Encounter Summary ---
Author Organization [facility] Address [address] [place] [address] Care Team Providers Care Mixer Pigment Name Role Phone Santy Sanchez MD Primary Care Provider Unava ilable Freddy CLARK MD, Malvin Washburn Unavailable Keira vailable Doctor, Lien Primary Care Provider UnavailTono Randall MD Unavailable Encounter Details Date Type Department Care Team (Late st Contact Info) Description 10/27/2005 Historical Encounter Global Kris Hurtado MD [address] [place], [place] [phone] Social History Tobacco Use Types Packs/Day Years [...] on filedocumented in this encounter Care Teams Mixer Pigment Relationship Specialty Start Date End Date Santy Sanchez MD PCP - General Internal Medicine 09/18/10 02/26/14 Doctor, [facility] RIT[facility] PCP - General Family Medicine 02/27/14 10/26/17 Tono Astudillo MD [address] [place] [address] PCP - Family Medicine Family Medicine 03/10/25 Malvin Hayes III, MD Gastroenterology 10/10/10 documented as of this encounter
--- OUTSIDE RECORDS SUMMARY | 2025-09-10 11:57 | XMS_ITS | Encounter Summary ---
Author Organization [facility] Address [address] [place] [place] [address] Care Team Providers Care Weight Yardage Checker Name Role Phone Santy Sanchez MD Primary Care Provider Unava ilmargarita Hayes III, MD, Malvin Washburn Unavailable Keira vailable Doctor, Lien Primary Care Provider UnavailTono Randall MD Unavailable Encounter Details Date Type Department Care Team (Late st Contact Info) Description 11/22/2005 Historical Encounter Global Hayden Chapin MD [facility] Emergency Dept. [address] [place] [address] Social History Tobacco Use Types Packs/Day Years [...] on filedocumented in this encounter Care Teams Weight Yardage Checker Relationship Specialty Start Date End Date Santy Sanchez MD PCP - General Internal Medicine 09/18/10 02/26/14 , RITO [place] PCP - General Family Medicine 02/27/14 10/26/17 Tono Astudillo MD [address] [place] [address] PCP - Family Medicine Family Medicine 03/10/25 Malvin Hayes III, MD Gastroenterology 10/10/10 documented as of this encounter
--- OUTSIDE RECORDS SUMMARY | 2025-09-10 11:57 | XMS_ITS | Encounter Summary ---
Author Organization [facility] Address [address] [place] [address] Care Team Providers Care Bedspread Cutter Hand Name Role Phone Santy Sanchez MD Primary Care Provider Unava ilable Freddy CLARK MD, Malvin Washburn Unavailable Keira vailable Doctor, Lien Primary Care Provider Unavailabl e Tono Astudillo MD Unavailable Encounter Details Date Type Department Care Team (Late st Contact Info) Description 09/17/1993 Historical Encounter Global Norberto Jordan Social History [...] on filedocumented in this encounter Care Teams Bedspread Cutter Hand Relationship Specialty Start Date End Date Santy Sanchez MD PCP - General Internal Medicine 09/18/10 02/26/14 Doctor, Lien [place] RITO PCP - General Family Medicine 02/27/14 10/26/17 Tono Astudillo MD [address] [place] [address] PCP - Family Medicine Family Medicine 03/10/25 Malvin Hayes III, MD Gastroenterology 10/10/10 documented as of this encounter
--- OUTSIDE RECORDS SUMMARY | 2025-09-10 11:57 | XMS_ITS | Encounter Summary ---
Author Organization [facility] Address [address] [place] [address] Care Team Providers Care Shipping/Receiving Clerk Name Role Phone Santy Sanchez MD Primary Care Provider Unava ilmargarita Hayes III, MD, Malvin Washburn Unavailable Keira vailable Doctor, Lien Primary Care Provider Unavailabl e Tono Astudillo MD Unavailable Encounter Details Date Type Department Care Team (Late st Contact Info) Description 11/07/2005 Historical Encounter Global Jesus Johnson MD [address] [facility] [address] [place] [phone] Social History Tobacco Use Types Packs/Day Years [...] on filedocumented in this encounter Care Teams Shipping/Receiving Clerk Relationship Specialty Start Date End Date Santy Sanchez MD PCP - General Internal Medicine 09/18/10 02/26/14 Lien [place] PCP - General Family Medicine 02/27/14 10/26/17 Tono Astudillo MD [address] [place] [address] PCP - Family Medicine Family Medicine 03/10/25 Malvin Hayes III, MD Gastroenterology 10/10/10 documented as of this encounter
--- OUTSIDE RECORDS SUMMARY | 2025-09-10 11:57 | XMS_ITS | Encounter Summary ---
Author Organization [facility] Address [address] [place] [address] Care Team Providers Care Mine Safety Engineer Name Role Phone Santy Sanchez MD Primary Care Provider Unava ilable Freddy CLARK MD, Malvin Washburn Unavailable Keira vailable Doctor, Lien Primary Care Provider Unavailabl e Tono Astudillo MD Unavailable Encounter Details Date Type Department Care Team (Late st Contact Info) Description 11/27/2003 Historical Encounter Global Tono Aquino MD [address] [place] [address] Social History Tobacco Use Types [...] on filedocumented in this encounter Care Teams Mine Safety Engineer Relationship Specialty Start Date End Date Santy Sanchez MD PCP - General Internal Medicine 09/18/10 02/26/14 Doctor, Lien [place] RITO PCP - General Family Medicine 02/27/14 10/26/17 Tono Astudillo MD [address] [place] [address] PCP - Family Medicine Family Medicine 03/10/25 Malvin Hayes III, MD Gastroenterology 10/10/10 documented as of this encounter
--- OUTSIDE RECORDS SUMMARY | 2025-09-10 11:57 | XMS_ITS | Encounter Summary ---
Author Organization [facility] Address [address] [place] [address] Care Team Providers Care Maintenance Planner Name Role Phone Santy Sanchez MD Primary Care Provider Unava ilable Freddy CLARK MD, Malvin Washburn Unavailable Keira vailable Doctor, Lien Primary Care Provider Unavailabl e Tono Astudillo MD Unavailable Encounter Details Date Type Department Care Team (Late st Contact Info) Description 08/14/2005 Historical Encounter Global Norberto Jordan Social History [...] on filedocumented in this encounter Care Teams Maintenance Planner Relationship Specialty Start Date End Date Santy Sanchez MD PCP - General Internal Medicine 09/18/10 02/26/14 Doctor, Lien [place] RITO PCP - General Family Medicine 02/27/14 10/26/17 Tono Astudillo MD [address] [place] [address] PCP - Family Medicine Family Medicine 03/10/25 Malvin Hayes III, MD Gastroenterology 10/10/10 documented as of this encounter
--- OUTSIDE RECORDS SUMMARY | 2025-09-10 11:57 | XMS_ITS | Encounter Summary ---
Author Organization [facility] Address [address] [place] [address] Care Team Providers Care Creative Services Designer Name Role Phone Santy Sanchez MD Primary Care Provider Unava ilable Freddy CLARK MD, Malvin Washburn Unavailable Keira vailable Doctor, Lien Primary Care Provider UnavailTono Randall MD Unavailable Encounter Details Date Type Department Care Team (Late st Contact Info) Description 04/12/2005 Historical Encounter Global Morelia Terry MD [address] [place], [place] [phone] Social History Tobacco Use Types Packs/Day Years [...] on filedocumented in this encounter Care Teams Creative Services Designer Relationship Specialty Start Date End Date Santy Sanchez MD PCP - General Internal Medicine 09/18/10 02/26/14 Lien [place] PCP - General Family Medicine 02/27/14 10/26/17 Tono Astudillo MD [address] [place] [address] PCP - Family Medicine Family Medicine 03/10/25 Malvin Hayes III, MD Gastroenterology 10/10/10 documented as of this encounter
--- OUTSIDE RECORDS SUMMARY | 2025-09-10 11:58 | XMS_ITS | Encounter Summary ---
Author Organization [facility] Address [address] [place] [address] Care Team Providers Care Desizing Machine Operator Name Role Phone Unavailable Primary Care Provider Unavailabl e Prior Encounters Date Type Department Care Team Description 01/19/2025 1:45 PM EDT Office Visit [facility] [place] [facility] [address], [address] [phone] Cecilio Reyes DDS Retained tooth root (Primary Dx); Dental caries, unspecified Last Filed Vital Signs Vital Sign Reading Time Taken Comments Blood Pressure 150/103 01/19/2025 2:11 PM EDT Pulse 88 01/19/2025 2:11 PM EDT Temperature - - Respiratory Rate - - Oxygen Saturation - - Inhaled Oxygen Concentration - - Weight - - Height - - Body Mass Index - - Plan of Treatment Not on file Procedures Procedure Name Priority Date/Time Associated Diagnosis Comments 4 GUIDED TISSUE REGENERATION, EDENTULOUS AREA - RESORBABLE BARRIER, PER SITE Routine 01/19/2025 1:45 PM EDT 4 BONE REPLACEMENT GRAFT FOR RIDGE PRESERVATION - PER SITE - MAXILLARY Routine 01/19/2025 1:45 PM EDT 4 EXTRACTION, ERUPTED TOOTH REQUIRING REMOVAL OF BONE AND/OR SECTIONING OF TOOTH Routine 01/19/2025 1:45 PM EDT Retained tooth root [facility] CT CAPTURE AND INTERPRETATION WITH FIELD OF VIEW OF BOTH JAWS; WITH OR WITHOUT CRANIUM Routine 01/19/2025 1:45 PM EDT BITEWING - SINGLE RADIOGRAPHIC IMAGE Routine 01/19/2025 1:45 PM EDT ADDITIONAL X-RAY Routine 01/19/2025 1:45 PM EDT SINGLE X-RAY Routine 01/19/2025 1:45 PM EDT LIMITED ORAL EVALUATION - PROBLEM FOCUSED Routine 01/19/2025 1:45 PM EDT 17 EXTRACTION - A Routine 01/19/2025 12: 00 AM EDT 18 EXTRACTION - A Routine 01/19/2025 12: 00 AM EDT 19 EXTRACTION - A Routine 01/19/2025 12: 00 AM EDT 30 EXTRACTION - A Routine 01/19/2025 12: 00 AM EDT 31 EXTRACTION - A Routine 01/19/2025 12: 00 AM EDT 32 EXTRACTION - A Routine 01/19/2025 12: 00 AM EDT Visit Diagnoses Diagnosis Start Date Retained tooth root Retained dental root 01/19/2025 Dental caries, unspecified 01/19/2025 Insurance [facility] PPO
== END 2025-09-09 23:59 | disposition home or self-care (01) ==
LOC: LAB.DROPOF 09-10 10:33
PROVIDERS: PCP Family Medicine; Visit Provider Family Medicine
DX: R10.9 Unspecified abdominal pain (principal)
CPT/HCPCS: 80053; 83690